=== PATIENT | male | born 1970 | race Caucasian/White ===

== ENCOUNTER 2019-06-11 05:03 | Inpatient (IN) ==
[2019-06-11] MEDS ORDERED: NS 1000 ML 1,000 ML ONE ×2 (05:20→06:21)
[2019-06-11] MEDS ORDERED: MORPHINE SULFATE INJ 4 MG IV ONE ×2 (05:26→06:26)
[2019-06-11] MEDS ORDERED: ZOFRAN INJ 4 MG VIAL IV ONE (05:26)
[2019-06-11] MEDS ORDERED: ZOFRAN INJ 4 MG VIAL ONE (05:39)
[2019-06-11] MEDS ORDERED: MORPHINE SULFATE INJ 4 MG ONE ×2 (05:39→06:28)
--- NOTE | 2019-06-11 05:41 | DR.ABDMALE ---
HPI Time seen Time Seen by Provider: 06/11/19 05:26 PCP Primary Care Physician: JESSENIA HPI comment HPI Comment: 48 y/o with episode pancreatitis last year started having abd pain three days ago which has progressively worsened and is now accompanied by n/v; radiates to the back; no fever, chills, or diarrhea; last drink 3-4 days ago; he is a binge drinker Complaint Chief Complaint:: PT AMBULATORY IN ED WITH C/O LOWER ABD PAIN WITH N/V. PT STATES HE WAS DIAGNOSED WITH PANCREATITIS A YEAR AGO AND FEELS THE SAME. PT DIAPHORETIC IN TRIAGE. COVID-19 Coronavirus risk:travel/contact w/high risk person: No Has patient experienced Coronavirus symptoms: No Mode of arrival Mode of Arrival: Ambulatory Timing Onset of Chief Complaint: 06/09/19 PMH PMH Past Medical History: Yes Past Medical History: Hypertension Past Medical History Comment: PANCREATITIS Past Surgical History: Yes Past Surgical History Comment: HERNIA Family History History of Family Medical Conditions: Yes Family Medical History: Hypertension Social History Does patient currently use any type of tobacco product: No Have you used tobacco products in the last 12 months: No Type of Tobacco Use: None Does any household member use tobacco: No Alcohol Use: Heavy Do you use any recreational Drugs:: No Lives With: Dad Lives Where: Home Travel Risk Coronavirus risk:travel/contact w/high risk person: No Has patient experienced Coronavirus symptoms: No Infectious screening In the last 2 months have you had wt loss of >10#?: NO Have you had fever, night sweats or hemotysis?: No Have you traveled outside the country in the last 6 months?: No Isolation: Standard ROS Review of Systems Constitutional: No Symptoms Reported Respiratoy: No Symptoms Reported Cardiovascular: No Symptoms Reported Gastrointestinal/Abdominal: See HPI Neurological: No Symptoms Reported Musculoskeletal: See HPI and Back Integumentary: No Symptoms Reported Hematologic/Lymphatic: No Symptoms Reported PE Vital Signs Vital Signs: Temp Pulse Resp BP BP Pulse Ox 06/11/19 09:30 195/121 06/11/19 09:09 20 06/11/19 09:00 175/103 06/11/19 08:39 20 06/11/19 08:30 182/115 06/11/19 08:00 188/119 06/11/19 07:38 177/110 06/11/19 07:01 20 06/11/19 07:00 153/102 06/11/19 06:31 20 06/11/19 06:30 181/104 06/11/19 06:23 182/103 06/11/19 06:00 20 06/11/19 05:30 22 06/11/19 05:04 96.7 F L 148 H 22 165/121 97 General Limitations: No Limitations General Appearance: Alert and In No Apparent Distress Head Head Exam: Normal Inspection, Atraumatic and Normocephalic Eyes Eye exam: Normal Appearance Neck Neck Exam: Normal Inspection, Full ROM and Trachea Midline Respiratory Respiratory Exam: Normal Lung Sounds Bilat Respiratory Exam: Bilateral: Clear to Auscultation Cardiovascular Cardiovascular Exam: Regular Rate and Normal Rhythm Abdominal Exam Abdominal Exam: Normal Inspection, Normal Bowel Sounds, Soft and Tenderness Abdominal Tenderness: Diffuse and Severe Back Back Exam: Normal Inspection Extremeties Extremities Exam: Normal Inspection and Full ROM Neurologic Neurological Exam: Alert, Oriented X3 and CN II-XII Intact Psychiatric Psychiatric Exam: Normal Affect and Normal Mood COURSE Treatment Treatment: [address] Myrick Reevaluation 1st: Improved (minimally; still 8/10 although resting comfortably) ROR Labs Reviewed Result Diagrams: 06/11/19 05:20 06/11/19 05:20 Laboratory: WBC 8.9 X10^3/uL (3.6-10.0) 06/11/19 05:20 RBC 5.72 X10^6/uL (4.7-6.0) 06/11/19 05:20 Hgb 19.7 g/dL (13.5-18.0) H* 06/11/19 05:20 Hct 55.6 % (42.0-54.0) H 06/11/19 05:20 MCV 97.1 fL (80.0-100.0) 06/11/19 05:20 MCH 34.4 pg (27.0-34.0) H 06/11/19 05:20 MCHC 35.4 g/dL (33.0-35.0) H 06/11/19 05:20 RDW 14.8 % (11.6-16.5) 06/11/19 05:20 Plt Count 117 X10^3/uL (150.0-450.0) L 06/11/19 05:20 Plt Count Comment Decreased (ADEQUATE) 06/11/19 05:20 MPV 9.6 fL (7.4-11.0) 06/11/19 05:20 Neut % (Auto) 89.9 % (42.0-75.0) H 06/11/19 05:20 Lymph % (Auto) 3.3 % (21.0-51.0) L 06/11/19 05:20 [place] % (Auto) 5.9 % (0.0-13.0) 06/11/19 05:20 Eos % (Auto) 0.1 % (0.9-2.9) L 06/11/19 05:20 Baso % (Auto) 0.8 % (0.2-1.0) 06/11/19 05:20 Neut # (Auto) 8.0 x10^3/uL (2.2-4.8) H 06/11/19 05:20 Lymph # (Auto) 0.3 X10^3/uL (1.3-2.9) L 06/11/19 05:20 [place] # (Auto) 0.5 x10^3/uL (0.3-0.8) 06/11/19 05:20 Eos # (Auto) 0.0 x10^3/uL (0.0-0.2) 06/11/19 05:20 Baso # (Auto) 0.1 X10^3/uL (0.0-0.1) 06/11/19 05:20 Absolute Nucleated RBC 0.2 /100WBC 06/11/19 05:20 Total Counted 100 06/11/19 05:20 Neutrophils % (Manual) 83 % (39-76) H 06/11/19 05:20 Band Neutrophils % 7 % (0-10) 06/11/19 05:20 Lymphocytes % (Manual) 6 % (13-43) L 06/11/19 05:20 Monocytes % (Manual) 4 % (4-9) 06/11/19 05:20 Plt Morphology Comment Normal (NORMAL) 06/11/19 05:20 RBC Morphology Normal (NORMAL) 06/11/19 05:20 Sodium 136 mmol/L (136-145) 06/11/19 05:20 Corrected Sodium 140 mmol/L (136-145) 06/11/19 05:20 Potassium 3.5 mmol/L (3.5-5.1) 06/11/19 05:20 Chloride 91 mmol/L (98-107) L 06/11/19 05:20 Carbon Dioxide 23.9 mmol/L (21-32) 06/11/19 05:20 BUN 7 mg/dL (7-18) 06/11/19 05:20 Creatinine 1.37 mg/dL (0.70-1.30) H 06/11/19 05:20 Est GFR (MDRD) Af Amer > 60 (>60) 06/11/19 05:20 Est GFR (MDRD) Non-Af 59 (>60) 06/11/19 05:20 Glucose 283 mg/dL (65-99) H 06/11/19 05:20 Calcium 10.0 mg/dL (8.5-10.1) 06/11/19 05:20 Corrected Calcium TNP 06/11/19 05:20 Total Bilirubin 2.50 mg/dL (0.2-1.0) H 06/11/19 05:20 AST 207 Units/L (15-37) H 06/11/19 05:20 ALT 217 Units/L (12-78) H 06/11/19 05:20 Alkaline Phosphatase 128 Units/L (46-116) H 06/11/19 05:20 Total Protein 8.9 g/dL (6.4-8.2) H 06/11/19 05:20 Albumin 4.8 g/dL (3.4-5.0) 06/11/19 05:20 Globulin 4.1 g/dL (2.5-4.5) 06/11/19 05:20 Albumin/Globulin Ratio 1.2 Ratio (1.1-2.1) 06/11/19 05:20 Amylase 611 Units/L (25-115) H 06/11/19 05:20 Lipase 21395 Units/L (73-393) H 06/11/19 05:20 Ethyl Alcohol mg/dL < 3 mg/dL (0-19.9) 06/11/19 05:20 Ethyl Alcohol mg/dL Cancelled 06/11/19 05:20 Opioid Opioid Risk Tool Age (Tucker box if 16-45): Yes History of Preadolescent Sexual Abuse: No Total: 1 Total Score Risk Category: Low Risk Copyright: Dougie BLEDSOE predicting aberrant behaviors Diagnosis Discharge Problem: Thrombocytopenia, Erythrocytosis, Cyst and pseudocyst of pancreas Acute alcoholic pancreatitis Qualifiers: Acute pancreatitis complication: no infection or necrosis Qualified Code(s): K85.20 - Alcohol induced acute pancreatitis without necrosis or infection Abdominal pain Qualifiers: Abdominal location: generalized Qualified Code(s): R10.84 - Generalized abdominal pain Instructions Forms: Excuse From Work Precautions for COVID19 Patient Portal Social Distancing
[2019-06-11 05:44] LABS: BASOPHILS # (AUTO) 0.1 X10^3/uL (0.0-0.1); LYMPHOCYTES # (AUTO) 0.3 X10^3/uL (1.3-2.9); LYMPHOCYTES % (AUTO) 3.3 % (21.0-51.0); RED BLOOD COUNT 5.72 X10^6/uL (4.7-6.0); RED CELL DISTRIBUTION WIDTH 14.8 % (11.6-16.5)
[2019-06-11] MEDS ORDERED: NS 1000 ML 1,000 ML IV ONE (05:44)
[2019-06-11 05:55] LABS: ALANINE AMINOTRANSFERASE 217 Units/L (12-78); ALBUMIN 4.8 g/dL (3.4-5.0); ALKALINE PHOSPHATASE 128 Units/L (46-116); AMYLASE 611 Units/L (25-115); ASPARTATE AMINO TRANSFERASE 207 Units/L (15-37); BLOOD UREA NITROGEN 7 mg/dL (7-18); CARBON DIOXIDE 23.9 mmol/L (21-32); CHLORIDE 91 mmol/L (98-107); COR NA(FOR HYPERGLY) 140 mmol/L (136-145); CREATININE 1.37 mg/dL (0.70-1.30); SODIUM 136 mmol/L (136-145); TOTAL PROTEIN 8.9 g/dL (6.4-8.2); eGFR NON BLACK RACES 59 (>60)
[2019-06-11 06:03] LABS: BASOPHILS % (AUTO) 0.8 % (0.2-1.0); EOSINOPHILS % (AUTO) 0.1 % (0.9-2.9); HEMATOCRIT 55.6 % (42.0-54.0); MEAN CORPUSCULAR HEMOGLOBIN 34.4 pg (27.0-34.0); MEAN CORPUSCULAR HGB CONC 35.4 g/dL (33.0-35.0); MEAN CORPUSCULAR VOLUME 97.1 fL (80.0-100.0); MEAN PLATELET VOLUME 9.6 fL (7.4-11.0); MONOCYTES # (AUTO) 0.5 x10^3/uL (0.3-0.8); MONOCYTES % (AUTO) 5.9 % (0.0-13.0); NEUTROPHILS % (AUTO) 89.9 % (42.0-75.0); PLATELET COUNT 117 X10^3/uL (150.0-450.0); WHITE BLOOD COUNT 8.9 X10^3/uL (3.6-10.0)
[2019-06-11 06:09] LABS: BAND NEUTROPHILS % 7 % (0-10); HEMOGLOBIN 19.7 g/dL (13.5-18.0); PLATELET MORPHOLOGY COMMENT NORMAL (NORMAL)
[2019-06-11 06:13] LABS: LIPASE 15224 Units/L (73-393)
[2019-06-11] MEDS ORDERED: NS 1000 ML 1,000 ML IV SCH ×2 (07:00)
[2019-06-11] MEDS ORDERED: NS 100 ML IV 0 ML IV ONE (07:27)
[2019-06-11] MEDS ORDERED: ROCEPHIN VIAL 1 GRAM ONE ×2 (07:28→22:41)
--- NOTE | 2019-06-11 08:07 | CT ---
HISTORYAbdominal pain, nausea, vomitingSTUDYABDOMEN/PELVIS WITH CONCOMPARISONNoneTECHNIQUEMultiple axial images of the abdomen and pelvis were obtained from the lung bases to the pubic symphysis after the administration of 100 mL Omnipaque 350 IV contrast and oral contrast.. Dose reduction techniques including Automated Exposure Control (AEC) and adjustment of mA and kV were utilized.FINDINGSThe visualized portions of the lung bases are unremarkable . The spleen, kidneys, and adrenal glands are unremarkable in their CT appearance. A small simple cyst is seen posteriorly in the upper pole left kidney. Kidneys are otherwise normal. The liver is diffusely decreased in attenuation consistent with fatty infiltration. No focal hepatic lesions or dilated ducts are observed. The pancreas is diffusely enlarged with peripancreatic blurring there is a small amount of simple free fluid in the abdomen and there is a large pancreatic cyst probably a pancreatic pseudocyst at the tail the pancreas measuring 8.5 x 7.3 cm with central attenuation of 16 Hounsfield units. There is mild wall thickening in the 2nd portion the duodenal sweep adjacent to the head pancreas consistent with secondary edema from the pancreatitis. No hypodensities are seen within the pancreas to suggest pancreatic necrosis or abscess. The gallbladder is unremarkable in its CT appearance . No significant mesenteric lymphadenopathy can be observed. There is stranding in the mesentery surrounding the pancreas secondary to the pancreatitis. The aorta and IVC are normal there is no evidence aneurysm or retroperitoneal adenopathy. No free air is seen within the abdomen. No bowel wall thickening or bowel dilatation is present. The colon is unremarkable. Specifically, there is mild diverticulosis noted within the sigmoid colon but no signs of diverticulitis.. The urinary bladder is grossly unremarkable. The bony structures are grossly intact.IMPRESSIONPancreatitis acute moderate to severe in degree with the large pancreatic pseudocyst developing at the tail the pancreas. There is no evidence of pancreatic necrosis or infection at this time. There is a small amount of free fluid in the pericolic gutter on the left.Markedly fatty infiltration of the liver but no focal dilated ducts or focal hepatic lesions. No signs of gallstones.Simple cyst upper pole left kidney posterior laterally.Electronically signed by: BESSY FLORES (Jun 11, 2019 08:05:33)
[2019-06-11] MEDS ORDERED: DILAUDID INJ ONE (08:36)
[2019-06-11] MEDS: DILAUDID INJ IVP PRN ×3 (08:39→19:34)
[2019-06-11] MEDS ORDERED: PROTONIX INJ 40 MG VIAL ONE (09:43)
[2019-06-11] MEDS ORDERED: CATAPRES TAB 0.1 MG ONE (09:43)
[2019-06-11] MEDS: PROTONIX INJ 40 MG VIAL IVP SCH (09:48)
[2019-06-11] MEDS: CATAPRES TAB 0.1 MG PO SCH ×2 (09:48→21:25)
[2019-06-11] MEDS ORDERED: LIBRIUM PO PRN (10:19)
[2019-06-11] MEDS ORDERED: ATIVAN INJ 2 MG VIAL IVP ONE (10:21)
[2019-06-11] MEDS ORDERED: ATIVAN INJ 2 MG VIAL ONE (10:22)
[2019-06-11] MEDS ORDERED: CATAPRES-TTS-2 TD SCH (11:00)
--- NOTE | 2019-06-11 11:12 | US ---
[id number] male with pancreatitis.STUDYAbdominal ultrasoundCOMPARISONCT of the abdomen/pelvis performed on the same dateFINDINGSFatty changes are noted in the liver. However no focal intrahepatic abnormality is seen. Portal vein is patent with normal hepatopetal flow.Gallbladder is normal appearing with no cholelithiasis, gallbladder wall thickening, or localized tenderness.Right kidney measures 9.7 centimeters and the left 10.2 centimeters in length. A 0.9 centimeter cyst is identified in the left kidney. Otherwise no evidence of hydronephrosis, echogenic calculi, or solid renal mass is seen on either side.Spleen is unremarkable.Pancreas is not well seen because of overlying bowel gas. However a 7 x 5 x 9 cm cystic structure in the region of the tail the pancreas corresponds to the pancreatic pseudocyst noted on patient's CT.Abdominal aorta is not well seen because of overlying bowel gasIMPRESSION1. Pancreas not well seen because of overlying bowel gas. However large cystic structure in the region of the tail the pancreas corresponds to the pancreatic pseudocyst identified on patient's CT.2. Fatty changes are seen in the liver.3. Left renal cyst.No cholelithiasis.Electronically signed by: KELL FELIX (Jun 11, 2019 11:10:44)
[2019-06-11] MEDS: D5 1/2 NS 1000 ML 1,000 ML IV SCH ×3 (13:24→21:35)
[2019-06-11] MEDS: ZOFRAN INJ 4 MG VIAL IVP PRN (13:25)
[2019-06-11] MEDS: LIBRIUM PO SCH ×3 (13:27→23:04)
[2019-06-11] MEDS: ANCEF VIAL 1 GRAM IVP SCH ×2 (13:28→21:25)
[2019-06-11 13:31] VITALS: BMI 37.3
[2019-06-11 14:10] LABS: BILIRUBIN,URINE 1+ (NEGATIVE); BLOOD/HEMOGLOBIN,URINE 2+ (NEGATIVE); GLUCOSE, URINE 2+ (NEGATIVE); KETONES,URINE 2+ (NEGATIVE); LEUKOCYTE ESTERASE ,URINE 1+ (NEGATIVE); NITRITES,URINE POSITIVE (NEGATIVE); PH,URINE 6.5 (5.0 - 8.0); PROTEIN,URINE 3+ (NEGATIVE); UROBILINOGEN,URINE 2+ (NORMAL)
[2019-06-11 14:21] LABS: APPEARANCE,URINE CLEAR (CLEAR); BACTERIA,URINE TRACE /HPF (NEGATIVE); COLOR,URINE ORANGE (YELLOW); MUCUS,URINE FEW /HPF (NEGATIVE); SQUAMOUS EPITHELIAL CELL,UR RARE /HPF (NEGATIVE)
[2019-06-11] MEDS ORDERED: APRESOLINE INJ 20 MG VIAL IVP PRN (14:50)
[2019-06-11 15:18] LABS: CHOL/HDL RATIO 3.7 (0.0-5.0)
[2019-06-11] MEDS: LEVAQUIN PREMIX IV 500 MG 500 MG/100 ML BAG IV SCH (15:18)
[2019-06-11] MEDS ORDERED: APRESOLINE INJ 20 MG VIAL ONE (15:51)
[2019-06-11] MEDS: MVI IV SCH ×5 (16:02)
[2019-06-11] MEDS: [UNRECOGNIZED DRUG - OTHER] IV SCH ×5 (16:02)
[2019-06-11] MEDS: MAGNESIUM SULFATE IV SCH ×5 (16:02)
[2019-06-11] MEDS: NS IV SCH ×5 (16:02)
--- NOTE | 2019-06-11 16:18 | DR.H&P ---
H&P History & Physical for Day of: H&P Date: 06/11/19 Chief Complaint Chief Complaint: abdominal pain, nausea Allergies Allergies Allergy/AdvReac Type Severity Reaction Status Date / Time No Known Drug Allergies Allergy Verified 06/11/19 05:10 History of Present Illness History of Present Illness: Mr. Meadows is a 48y/o male with a PMH of HTN and chronic ETOH use presented with diffuse abdominal pain with radiation to the back, associated with nausea and vomiting. Patient states his symptoms started yesterday morning after he had been binge drinking for the past 3-4 days. He states he knew he was having another pancreatitis episode so decided to come to the ED. His last episode was a year ago in [place]. He has been staying in [place] now due to pandemic so states he has been at home with nothing to do. He denies hx of seizures 2/2 to ETOH or intubation. He was in rehab over a year ago for alcohol abuse but reports started drinking again. ED work-up: CTAP: pancreatitis with pseudocyst, Dr Nguyen managing. Abd U/S: no gall bladder inflammation or cholelithiasis. Lipase: 15 224, elevated LFTs and amylase. Mild elevation in Cr, CEA pending. Consult for med management due to accelerated HTN and tachycardia. Plan: continue clonidine BID, add hydralazine prn for SBP>160, BP currently improved from admission, HR 110-120 likely due to withdrawal. Continue Librium and monitor closely. Continue IVF and banana bag, NPO and pain control. Continue telemetry. Repeat labs in the AM. Past Medical History Past Medical History: Hypertension Additional Medical History: ETOH use. Family History Family Medical History: Hypertension Social History Does patient currently use any type of tobacco product: No Have you used tobacco products in the last 12 months: No Type of Tobacco Use: None Does any household member use tobacco: No Alcohol Use: Occasionally and Heavy Drug Use: None Medications Home Medications: No Known Drug Allergies Allergy (Verified 06/11/19 05:10) CONTINUE taking the following medications clonidine HCl 0.1 mg PO BID 06/11/19 [History] Labs Result Diagrams: 06/11/19 05:20 06/11/19 05:20 Labs: Laboratory WBC 8.9 X10^3/uL (3.6-10.0) 06/11/19 05:20 RBC 5.72 X10^6/uL (4.7-6.0) 06/11/19 05:20 Hgb 19.7 g/dL (13.5-18.0) H* 06/11/19 05:20 Hct 55.6 % (42.0-54.0) H 06/11/19 05:20 MCV 97.1 fL (80.0-100.0) 06/11/19 05:20 MCH 34.4 pg (27.0-34.0) H 06/11/19 05:20 MCHC 35.4 g/dL (33.0-35.0) H 06/11/19 05:20 RDW 14.8 % (11.6-16.5) 06/11/19 05:20 Plt Count 117 X10^3/uL (150.0-450.0) L 06/11/19 05:20 Plt Count Comment Decreased (ADEQUATE) 06/11/19 05:20 MPV 9.6 fL (7.4-11.0) 06/11/19 05:20 Neut % (Auto) 89.9 % (42.0-75.0) H 06/11/19 05:20 Lymph % (Auto) 3.3 % (21.0-51.0) L 06/11/19 05:20 [place] % (Auto) 5.9 % (0.0-13.0) 06/11/19 05:20 Eos % (Auto) 0.1 % (0.9-2.9) L 06/11/19 05:20 Baso % (Auto) 0.8 % (0.2-1.0) 06/11/19 05:20 Neut # (Auto) 8.0 x10^3/uL (2.2-4.8) H 06/11/19 05:20 Lymph # (Auto) 0.3 X10^3/uL (1.3-2.9) L 06/11/19 05:20 [place] # (Auto) 0.5 x10^3/uL (0.3-0.8) 06/11/19 05:20 Eos # (Auto) 0.0 x10^3/uL (0.0-0.2) 06/11/19 05:20 Baso # (Auto) 0.1 X10^3/uL (0.0-0.1) 06/11/19 05:20 Absolute Nucleated RBC 0.2 /100WBC 06/11/19 05:20 Total Counted 100 06/11/19 05:20 Neutrophils % (Manual) 83 % (39-76) H 06/11/19 05:20 Band Neutrophils % 7 % (0-10) 06/11/19 05:20 Lymphocytes % (Manual) 6 % (13-43) L 06/11/19 05:20 Monocytes % (Manual) 4 % (4-9) 06/11/19 05:20 Plt Morphology Comment Normal (NORMAL) 06/11/19 05:20 RBC Morphology Normal (NORMAL) 06/11/19 05:20 Sodium 136 mmol/L (136-145) 06/11/19 05:20 Corrected Sodium 140 mmol/L (136-145) 06/11/19 05:20 Potassium 3.5 mmol/L (3.5-5.1) 06/11/19 05:20 Chloride 91 mmol/L (98-107) L 06/11/19 05:20 Carbon Dioxide 23.9 mmol/L (21-32) 06/11/19 05:20 BUN 7 mg/dL (7-18) 06/11/19 05:20 Creatinine 1.37 mg/dL (0.70-1.30) H 06/11/19 05:20 Est GFR (MDRD) Af Amer > 60 (>60) 06/11/19 05:20 Est GFR (MDRD) Non-Af 59 (>60) 06/11/19 05:20 Glucose 283 mg/dL (65-99) H 06/11/19 05:20 Calcium 10.0 mg/dL (8.5-10.1) 06/11/19 05:20 Corrected Calcium TNP 06/11/19 05:20 Total Bilirubin 2.50 mg/dL (0.2-1.0) H 06/11/19 05:20 AST 207 Units/L (15-37) H 06/11/19 05:20 ALT 217 Units/L (12-78) H 06/11/19 05:20 Alkaline Phosphatase 128 Units/L (46-116) H 06/11/19 05:20 Total Protein 8.9 g/dL (6.4-8.2) H 06/11/19 05:20 Albumin 4.8 g/dL (3.4-5.0) 06/11/19 05:20 Globulin 4.1 g/dL (2.5-4.5) 06/11/19 05:20 Albumin/Globulin Ratio 1.2 Ratio (1.1-2.1) 06/11/19 05:20 Triglycerides 115 mg/dL (0-150) 06/11/19 14:59 Cholesterol 181 mg/dL (0-200) 06/11/19 14:59 LDL Cholesterol, Calc 109 mg/dL (0-100) H 06/11/19 14:59 HDL Cholesterol 49 mg/dL (40-60) 06/11/19 14:59 Cholesterol/HDL Ratio 3.7 (0.0-5.0) 06/11/19 14:59 Amylase 611 Units/L (25-115) H 06/11/19 05:20 Lipase 40565 Units/L (73-393) H 06/11/19 05:20 Specimen Type Clean catch urine 06/11/19 13:58 Urine Color [place] (YELLOW) 06/11/19 13:58 Urine Appearance Clear (CLEAR) 06/11/19 13:58 Urine pH 6.5 (5.0 - 8.0) 06/11/19 13:58 Ur Specific [place] 1.010 (1.000-1.030) 06/11/19 13:58 Urine Protein 3+ (NEGATIVE) 06/11/19 13:58 Urine Glucose (UA) 2+ (NEGATIVE) 06/11/19 13:58 Urine Ketones 2+ (NEGATIVE) 06/11/19 13:58 Urine Occult Blood 2+ (NEGATIVE) 06/11/19 13:58 Urine Nitrite Positive (NEGATIVE) 06/11/19 13:58 Urine Bilirubin 1+ (NEGATIVE) 06/11/19 13:58 Urine Urobilinogen 2+ (NORMAL) 06/11/19 13:58 Ur Leukocyte Esterase 1+ (NEGATIVE) 06/11/19 13:58 Urine RBC 3-5 /HPF (0-3) A 06/11/19 13:58 Urine WBC 0-2 /HPF (0-5) 06/11/19 13:58 Ur Squamous Epith Cells Rare /HPF (NEGATIVE) 06/11/19 13:58 Urine Bacteria Trace /HPF (NEGATIVE) 06/11/19 13:58 Urine Mucus Few /HPF (NEGATIVE) 06/11/19 13:58 Ur Culture Indicated? Yes/culture set up 06/11/19 13:58 Ethyl Alcohol mg/dL < 3 mg/dL (0-19.9) 06/11/19 05:20 Ethyl Alcohol mg/dL Cancelled 06/11/19 05:20 Review of Systems Constitutional: Sweats Eyes: No Symptoms Reported ENT: No Symptoms Reported Respiratory: No Symptoms Reported Cardiovascular: No Symptoms Reported Gastrointestinal: Nausea, Vomiting and Abdominal Pain Genitourinary: No Symptoms Reported Musculoskeletal: No Symptoms Reported Skin: No Symptoms Reported Neurological: No Symptoms Reported Physical Exam Vital Signs: Temperature 98.2 F Pulse Rate [Left Radial] 116 Pulse Rate 148 Respiratory Rate 20 Blood Pressure [Left Arm] 159/106 Blood Pressure 165/121 O2 Sat by Pulse Oximetry 93 Oriented: Normal Eyes: Normal Ear: Normal Nose: Normal Respiratory: Clear Throughout Cardiovascular: Normal and Tachycardia Auscultation: Bowel Sounds: Decreased Tenderness: Diffuse and Moderate Skin: Diaphoresis Musculoskeletal: Right and Hand (tremor noted ) Psychiatric: Anxiety Mood Description: Calm Affect: Anxious Speech Pattern: Clear and Appropriate Assessment/Plan (1) Acute alcoholic pancreatitis: Qualifiers: Acute pancreatitis complication: no infection or necrosis Qualified Code(s): K85.20 - Alcohol induced acute pancreatitis without necrosis or infection Status: Acute (2) Thrombocytopenia: Status: Acute (3) Cyst and pseudocyst of pancreas: Status: Acute (4) Accelerated hypertension: Status: Acute (5) ETOH abuse: Status: Acute (6) Sinus tachycardia: Status: Acute (7) UTI (urinary tract infection): Qualifiers: Hematuria presence: without hematuria Urinary tract infection type: acute cystitis Qualified Code(s): N30.00 - Acute cystitis without hematuria Status: Acute Review H&P Reviewed: Yes Patient was examined?: Yes
[2019-06-11] MEDS ORDERED: LOPRESSOR TAB 50 MG PO SCH (21:00)
[2019-06-11] MEDS ORDERED: CATAPRES TAB 0.1 MG PO SCH (21:00)
[2019-06-11] MEDS ORDERED: NS 100 ML IV 100 ML IV ONE (22:41)
[2019-06-12] MEDS ORDERED: NS 100 ML IV 100 ML IV ONE (04:19)
[2019-06-12] MEDS: ANCEF VIAL 1 GRAM IVP SCH ×3 (05:08→21:00)
[2019-06-12] MEDS: LIBRIUM PO SCH ×4 (05:08→22:00)
[2019-06-12 05:45] LABS: BASOPHILS % (AUTO) 0.3 % (0.2-1.0); HEMATOCRIT 51.9 % (42.0-54.0); HEMOGLOBIN 18.2 g/dL (13.5-18.0); LYMPHOCYTES # (AUTO) 0.2 X10^3/uL (1.3-2.9); LYMPHOCYTES % (AUTO) 2.2 % (21.0-51.0); MEAN CORPUSCULAR HEMOGLOBIN 34.8 pg (27.0-34.0); MEAN CORPUSCULAR HGB CONC 35.2 g/dL (33.0-35.0); MEAN CORPUSCULAR VOLUME 99.1 fL (80.0-100.0); MONOCYTES # (AUTO) 0.5 x10^3/uL (0.3-0.8); MONOCYTES % (AUTO) 4.8 % (0.0-13.0); NEUTROPHILS # (AUTO) 10.2 x10^3/uL (2.2-4.8); NEUTROPHILS % (AUTO) 92.7 % (42.0-75.0); PLATELET COUNT 83 X10^3/uL (150.0-450.0); RED BLOOD COUNT 5.24 X10^6/uL (4.7-6.0)
[2019-06-12 06:05] LABS: ALBUMIN 3.1 g/dL (3.4-5.0); CALCIUM 7.4 mg/dL (8.5-10.1); CARBON DIOXIDE 25.6 mmol/L (21-32); COR CA(FOR HYPOALB) 8.1 mg/dL (8.5-10.1); CREATININE 1.83 mg/dL (0.70-1.30); TOTAL PROTEIN 6.4 g/dL (6.4-8.2)
[2019-06-12 06:14] LABS: BAND NEUTROPHILS % 27 % (0-10); GIANT PLATELET PRESENT; METAMYELOCYTES % 3; PLATELET MORPHOLOGY COMMENT NORMAL (NORMAL)
[2019-06-12] MEDS: LEVAQUIN PREMIX IV 500 MG 500 MG/100 ML BAG IV SCH (08:15)
[2019-06-12] MEDS: PROTONIX INJ 40 MG VIAL IVP SCH (08:15)
[2019-06-12] MEDS ORDERED: KLOR-CON PO PRN (08:20)
[2019-06-12] MEDS: DILAUDID INJ IVP PRN ×2 (08:20→20:56)
[2019-06-12] MEDS ORDERED: POTASSIUM CHL 60 MEQ/NS 0.45% 500 ML IV PRN (08:20)
[2019-06-12] MEDS ORDERED: K-RIDER 10 MEQ/NS 100 ML 10 MEQ/100 ML BAG IV PRN (08:20)
[2019-06-12] MEDS ORDERED: MICRO K EXTEN CAP 10 MEQ PO PRN (08:20)
[2019-06-12] MEDS ORDERED: POTASSIUM CHL 40 MEQ/NS 0.45% 500 ML IV PRN (08:20)
[2019-06-12] MEDS: ZOFRAN INJ 4 MG VIAL IVP PRN (08:30)
--- NOTE | 2019-06-12 08:32 | PCM.PROG ---
Progress Note Progress Note for Day of Date of Exam: 06/12/19 Subjective Subjective: Patient seen and examined at bedside. Overnight, HR elevated to 140- 150, inventory control clerk physician as called and patient was started on metoprolol tartrate 50 mg BID. This morning, HR in the low 100-110, BP improved to SBP in 120's. Patient reports feeling slightly better, abdominal pain is not as diffuse as it was on admission. Denies N/V/D or fever/chills. Labs reviewed: K-3.2, Mg 1.0, Cr: 1.83, LFTs trending down and lipase/amylase. Plan: replace K and Mag as per protocol, continue NPO and pain control, continue banana bag. Will switch to NS at 150cc/hr. Decrease metoprolol tartrate to 12.5 mg BID. Patient has the clonidine patch on, hold PO clonidine. Follow surgery recommendations. Continue abx, urine culture pending. Past Medical Family Social History Past Med/Fam/Surg Hx: No changes since H&P Allergies: Allergies No Known Drug Allergies Allergy (Verified 06/11/19 05:10) Review of Systems ROS: No change since H&P Vital Signs and I&O's Vital Signs: Temperature 97.6 F Pulse Rate [Left Radial] 113 Pulse Rate 148 Respiratory Rate 20 Blood Pressure [Left Arm] 129/79 Blood Pressure 165/121 O2 Sat by Pulse Oximetry 94 Intake and Output: Intake & Output 06/09/19 06/10/19 06/11/19 06/12/19 23:59 23:59 23:59 23:59 Intake Total 1558 / 1558 1320 / 1320 Output Total 575 / 575 200 / 200 Balance 983 / 983 1120 / 1120 Physical Exam Oriented: Normal Eyes: Normal Ear: Normal Nose: Normal Cardiovascular: Normal and Tachycardia Auscultation: Bowel Sounds: Decreased Tenderness: Epigastric, Periumbilical and Moderate Musculoskeletal: Right and Hand (tremor improved ) Psychiatric: Normal Mood Description: Calm Affect: Normal Speech Pattern: Clear and Appropriate Laboratory and Diagnostics Result Diagrams: 06/12/19 05:15 06/12/19 05:15 Labs: Laboratory WBC 11.0 X10^3/uL (3.6-10.0) H 06/12/19 05:15 RBC 5.24 X10^6/uL (4.7-6.0) 06/12/19 05:15 Hgb 18.2 g/dL (13.5-18.0) H 06/12/19 05:15 Hct 51.9 % (42.0-54.0) 06/12/19 05:15 MCV 99.1 fL (80.0-100.0) 06/12/19 05:15 MCH 34.8 pg (27.0-34.0) H 06/12/19 05:15 MCHC 35.2 g/dL (33.0-35.0) H 06/12/19 05:15 RDW 15.0 % (11.6-16.5) 06/12/19 05:15 Plt Count 83 X10^3/uL (150.0-450.0) L 06/12/19 05:15 Plt Count Comment Decreased (ADEQUATE) 06/12/19 05:15 MPV 11.0 fL (7.4-11.0) 06/12/19 05:15 Neut % (Auto) 92.7 % (42.0-75.0) H 06/12/19 05:15 Lymph % (Auto) 2.2 % (21.0-51.0) L 06/12/19 05:15 [place] % (Auto) 4.8 % (0.0-13.0) 06/12/19 05:15 Eos % (Auto) 0.0 % (0.9-2.9) L 06/12/19 05:15 Baso % (Auto) 0.3 % (0.2-1.0) 06/12/19 05:15 Neut # (Auto) 10.2 x10^3/uL (2.2-4.8) H 06/12/19 05:15 Lymph # (Auto) 0.2 X10^3/uL (1.3-2.9) L 06/12/19 05:15 [place] # (Auto) 0.5 x10^3/uL (0.3-0.8) 06/12/19 05:15 Eos # (Auto) 0.0 x10^3/uL (0.0-0.2) 06/12/19 05:15 Baso # (Auto) 0.0 X10^3/uL (0.0-0.1) 06/12/19 05:15 Absolute Nucleated RBC 0.1 /100WBC 06/12/19 05:15 Total Counted 100 06/12/19 05:15 Neutrophils % (Manual) 62 % (39-76) 06/12/19 05:15 Band Neutrophils % 27 % (0-10) H 06/12/19 05:15 Lymphocytes % (Manual) 6 % (13-43) L 06/12/19 05:15 Monocytes % (Manual) 2 % (4-9) L 06/12/19 05:15 Metamyelocytes % 3 06/12/19 05:15 Giant Platelets Present 06/12/19 05:15 Plt Morphology Comment Normal (NORMAL) 06/12/19 05:15 RBC Morphology Normal (NORMAL) 06/12/19 05:15 Sodium 135 mmol/L (136-145) L 06/12/19 05:15 Corrected Sodium 136 mmol/L (136-145) 06/12/19 05:15 Potassium 3.2 mmol/L (3.5-5.1) L 06/12/19 05:15 Chloride 96 mmol/L (98-107) L 06/12/19 05:15 Carbon Dioxide 25.6 mmol/L (21-32) 06/12/19 05:15 BUN 14 mg/dL (7-18) 06/12/19 05:15 Creatinine 1.83 mg/dL (0.70-1.30) H 06/12/19 05:15 Est GFR (MDRD) Af Amer 51 (>60) L 06/12/19 05:15 Est GFR (MDRD) Non-Af 42 (>60) L 06/12/19 05:15 Glucose 147 mg/dL (65-99) H 06/12/19 05:15 POC Glucose (mg/dL) 164 mg/dL (65-99) H 06/12/19 05:29 Calcium 7.4 mg/dL (8.5-10.1) L 06/12/19 05:15 Corrected Calcium 8.1 mg/dL (8.5-10.1) L 06/12/19 05:15 Magnesium 1.0 mg/dL (1.7-2.9) L 06/12/19 05:15 Total Bilirubin 4.80 mg/dL (0.2-1.0) H 06/12/19 05:15 AST 133 Units/L (15-37) H 06/12/19 05:15 ALT 107 Units/L (12-78) H 06/12/19 05:15 Alkaline Phosphatase 64 Units/L (46-116) 06/12/19 05:15 Total Protein 6.4 g/dL (6.4-8.2) 06/12/19 05:15 Albumin 3.1 g/dL (3.4-5.0) L 06/12/19 05:15 Globulin 3.3 g/dL (2.5-4.5) 06/12/19 05:15 Albumin/Globulin Ratio 0.9 Ratio (1.1-2.1) L 06/12/19 05:15 Triglycerides 115 mg/dL (0-150) 06/11/19 14:59 Cholesterol 181 mg/dL (0-200) 06/11/19 14:59 LDL Cholesterol, Calc 109 mg/dL (0-100) H 06/11/19 14:59 HDL Cholesterol 49 mg/dL (40-60) 06/11/19 14:59 Cholesterol/HDL Ratio 3.7 (0.0-5.0) 06/11/19 14:59 Amylase 372 Units/L (25-115) H 06/12/19 05:15 Lipase 4084 Units/L (73-393) H 06/12/19 05:15 Specimen Type Clean catch urine 06/11/19 13:58 Urine Color [place] (YELLOW) 06/11/19 13:58 Urine Appearance Clear (CLEAR) 06/11/19 13:58 Urine pH 6.5 (5.0 - 8.0) 06/11/19 13:58 Ur Specific [place] 1.010 (1.000-1.030) 06/11/19 13:58 Urine Protein 3+ (NEGATIVE) 06/11/19 13:58 Urine Glucose (UA) 2+ (NEGATIVE) 06/11/19 13:58 Urine Ketones 2+ (NEGATIVE) 06/11/19 13:58 Urine Occult Blood 2+ (NEGATIVE) 06/11/19 13:58 Urine Nitrite Positive (NEGATIVE) 06/11/19 13:58 Urine Bilirubin 1+ (NEGATIVE) 06/11/19 13:58 Urine Urobilinogen 2+ (NORMAL) 06/11/19 13:58 Ur Leukocyte Esterase 1+ (NEGATIVE) 06/11/19 13:58 Urine RBC 3-5 /HPF (0-3) A 06/11/19 13:58 Urine WBC 0-2 /HPF (0-5) 06/11/19 13:58 Ur Squamous Epith Cells Rare /HPF (NEGATIVE) 06/11/19 13:58 Urine Bacteria Trace /HPF (NEGATIVE) 06/11/19 13:58 Urine Mucus Few /HPF (NEGATIVE) 06/11/19 13:58 Ur Culture Indicated? Yes/culture set up 06/11/19 13:58 Ethyl Alcohol mg/dL < 3 mg/dL (0-19.9) 06/11/19 05:20 Ethyl Alcohol mg/dL Cancelled 06/11/19 05:20 Plan (1) Acute alcoholic pancreatitis: Status: Acute Qualifiers: Acute pancreatitis complication: no infection or necrosis Qualified Code(s): K85.20 - Alcohol induced acute pancreatitis without necrosis or infection (2) Thrombocytopenia: Status: Acute (3) Cyst and pseudocyst of pancreas: Status: Acute (4) Accelerated hypertension: Status: Acute (5) ETOH abuse: Status: Acute (6) Sinus tachycardia: Status: Acute (7) UTI (urinary tract infection): Status: Acute Qualifiers: Hematuria presence: without hematuria Urinary tract infection type: acute cystitis Qualified Code(s): N30.00 - Acute cystitis without hematuria
[2019-06-12] MEDS: LOPRESSOR TAB 25 MG PO SCH ×2 (09:08→20:53)
[2019-06-12] MEDS: MAGNESIUM SULFATE 1 GRAM/100 mL PREMIX 1 GM/100 ML BAG IV PRN ×6 (09:50→17:00)
[2019-06-12] MEDS: NS 1000 ML 1,000 ML IV SCH (10:03)
[2019-06-12] MEDS: K-DUR TAB 20 MEQ PO PRN (10:04)
--- NOTE | 2019-06-12 10:07 | DR.PROGNOT ---
Hospital Progress Notes - Progress Note for Day of: Progress Note Date: 06/12/19 - Chief Complaint Chief Complaint: still c/o upper abdominal pain but less than yesterday . no nausea or vomiting . no BM yet. had episodes of tachycardia and HTN last night . LFT , Amylase Lipase are down. platelets 83. O2 94. GB US shwed no stones . - Past Medical Family Social History Past Med/Fam/Surg Hx: No changes since H&P Allergies: Allergies No Known Drug Allergies Allergy (Verified 06/11/19 05:10) - Review Of Systems ROS: No change since H&P - Vital Signs Vital Signs: Temperature 97.6 F Pulse Rate [Left Radial] 113 Pulse Rate 148 Respiratory Rate 22 Blood Pressure [Left Arm] 129/79 Blood Pressure 165/121 O2 Sat by Pulse Oximetry 94 - Physical Exam Oriented: Normal Eyes: Normal Ear: Normal Nose: Normal Cardiovascular: Tachycardia, Normal GI:Auscultation: Decreased GI: Tenderness: Epigastric, Moderate, Periumbilical Skin: Diaphoresis Musculoskeletal: Right, Hand (tremor improved) Psychiatric: Normal Mood Description: Calm Affect: Normal Speech Pattern: Clear, Appropriate - Laboratory and Diagnostics Result Diagrams: 06/12/19 05:15 06/12/19 05:15 Labs: 06/11/19 13:58 Urine,Clean Catch Urine Culture - Preliminary Laboratory WBC 11.0 X10^3/uL (3.6-10.0) H 06/12/19 05:15 RBC 5.24 X10^6/uL (4.7-6.0) 06/12/19 05:15 Hgb 18.2 g/dL (13.5-18.0) H 06/12/19 05:15 Hct 51.9 % (42.0-54.0) 06/12/19 05:15 MCV 99.1 fL (80.0-100.0) 06/12/19 05:15 MCH 34.8 pg (27.0-34.0) H 06/12/19 05:15 MCHC 35.2 g/dL (33.0-35.0) H 06/12/19 05:15 RDW 15.0 % (11.6-16.5) 06/12/19 05:15 Plt Count 83 X10^3/uL (150.0-450.0) L 06/12/19 05:15 Plt Count Comment Decreased (ADEQUATE) 06/12/19 05:15 MPV 11.0 fL (7.4-11.0) 06/12/19 05:15 Neut % (Auto) 92.7 % (42.0-75.0) H 06/12/19 05:15 Lymph % (Auto) 2.2 % (21.0-51.0) L 06/12/19 05:15 [place] % (Auto) 4.8 % (0.0-13.0) 06/12/19 05:15 Eos % (Auto) 0.0 % (0.9-2.9) L 06/12/19 05:15 Baso % (Auto) 0.3 % (0.2-1.0) 06/12/19 05:15 Neut # (Auto) 10.2 x10^3/uL (2.2-4.8) H 06/12/19 05:15 Lymph # (Auto) 0.2 X10^3/uL (1.3-2.9) L 06/12/19 05:15 [place] # (Auto) 0.5 x10^3/uL (0.3-0.8) 06/12/19 05:15 Eos # (Auto) 0.0 x10^3/uL (0.0-0.2) 06/12/19 05:15 Baso # (Auto) 0.0 X10^3/uL (0.0-0.1) 06/12/19 05:15 Absolute Nucleated RBC 0.1 /100WBC 06/12/19 05:15 Total Counted 100 06/12/19 05:15 Neutrophils % (Manual) 62 % (39-76) 06/12/19 05:15 Band Neutrophils % 27 % (0-10) H 06/12/19 05:15 Lymphocytes % (Manual) 6 % (13-43) L 06/12/19 05:15 Monocytes % (Manual) 2 % (4-9) L 06/12/19 05:15 Metamyelocytes % 3 06/12/19 05:15 Giant Platelets Present 06/12/19 05:15 Plt Morphology Comment Normal (NORMAL) 06/12/19 05:15 RBC Morphology Normal (NORMAL) 06/12/19 05:15 Sodium 135 mmol/L (136-145) L 06/12/19 05:15 Corrected Sodium 136 mmol/L (136-145) 06/12/19 05:15 Potassium 3.2 mmol/L (3.5-5.1) L 06/12/19 05:15 Chloride 96 mmol/L (98-107) L 06/12/19 05:15 Carbon Dioxide 25.6 mmol/L (21-32) 06/12/19 05:15 BUN 14 mg/dL (7-18) 06/12/19 05:15 Creatinine 1.83 mg/dL (0.70-1.30) H 06/12/19 05:15 Est GFR (MDRD) Af Amer 51 (>60) L 06/12/19 05:15 Est GFR (MDRD) Non-Af 42 (>60) L 06/12/19 05:15 Glucose 147 mg/dL (65-99) H 06/12/19 05:15 POC Glucose (mg/dL) 164 mg/dL (65-99) H 06/12/19 05:29 Calcium 7.4 mg/dL (8.5-10.1) L 06/12/19 05:15 Corrected Calcium 8.1 mg/dL (8.5-10.1) L 06/12/19 05:15 Magnesium 1.0 mg/dL (1.7-2.9) L 06/12/19 05:15 Total Bilirubin 4.80 mg/dL (0.2-1.0) H 06/12/19 05:15 AST 133 Units/L (15-37) H 06/12/19 05:15 ALT 107 Units/L (12-78) H 06/12/19 05:15 Alkaline Phosphatase 64 Units/L (46-116) 06/12/19 05:15 Total Protein 6.4 g/dL (6.4-8.2) 06/12/19 05:15 Albumin 3.1 g/dL (3.4-5.0) L 06/12/19 05:15 Globulin 3.3 g/dL (2.5-4.5) 06/12/19 05:15 Albumin/Globulin Ratio 0.9 Ratio (1.1-2.1) L 06/12/19 05:15 Triglycerides 115 mg/dL (0-150) 06/11/19 14:59 Cholesterol 181 mg/dL (0-200) 06/11/19 14:59 LDL Cholesterol, Calc 109 mg/dL (0-100) H 06/11/19 14:59 HDL Cholesterol 49 mg/dL (40-60) 06/11/19 14:59 Cholesterol/HDL Ratio 3.7 (0.0-5.0) 06/11/19 14:59 Amylase 372 Units/L (25-115) H 06/12/19 05:15 Lipase 4084 Units/L (73-393) H 06/12/19 05:15 Specimen Type Clean catch urine 06/11/19 13:58 Urine Color [place] (YELLOW) 06/11/19 13:58 Urine Appearance Clear (CLEAR) 06/11/19 13:58 Urine pH 6.5 (5.0 - 8.0) 06/11/19 13:58 Ur Specific [place] 1.010 (1.000-1.030) 06/11/19 13:58 Urine Protein 3+ (NEGATIVE) 06/11/19 13:58 Urine Glucose (UA) 2+ (NEGATIVE) 06/11/19 13:58 Urine Ketones 2+ (NEGATIVE) 06/11/19 13:58 Urine Occult Blood 2+ (NEGATIVE) 06/11/19 13:58 Urine Nitrite Positive (NEGATIVE) 06/11/19 13:58 Urine Bilirubin 1+ (NEGATIVE) 06/11/19 13:58 Urine Urobilinogen 2+ (NORMAL) 06/11/19 13:58 Ur Leukocyte Esterase 1+ (NEGATIVE) 06/11/19 13:58 Urine RBC 3-5 /HPF (0-3) A 06/11/19 13:58 Urine WBC 0-2 /HPF (0-5) 06/11/19 13:58 Ur Squamous Epith Cells Rare /HPF (NEGATIVE) 06/11/19 13:58 Urine Bacteria Trace /HPF (NEGATIVE) 06/11/19 13:58 Urine Mucus Few /HPF (NEGATIVE) 06/11/19 13:58 Ur Culture Indicated? Yes/culture set up 06/11/19 13:58 Ethyl Alcohol mg/dL < 3 mg/dL (0-19.9) 06/11/19 05:20 Ethyl Alcohol mg/dL Cancelled 06/11/19 05:20 - Assessment and Plan 1: acute pancreatitis with large pseudocyst in the body and tail . thrombocytopenia . UTI. same plan . clear liquid today . - Problem Patient Problems: Patient Problems UTI (urinary tract infection) (Acute) N39.0 Sinus tachycardia (Acute) R00.0 ETOH abuse (Acute) F10.10 Accelerated hypertension (Acute) I10 Acute alcoholic pancreatitis (Acute) K85.20 Thrombocytopenia (Acute) D69.6 Erythrocytosis (Acute) D75.1 Cyst and pseudocyst of pancreas (Acute) K86.2, K86.3 Abdominal pain (Acute) R10.9
[2019-06-12] MEDS ORDERED: ATIVAN INJ 2 MG VIAL IVP PRN (10:11)
[2019-06-12] MEDS: LOVENOX INJ 40 MG SYR SC SCH (14:21)
[2019-06-12] MEDS: NS IV SCH ×5 (17:14)
[2019-06-12] MEDS: [UNRECOGNIZED DRUG - OTHER] IV SCH ×5 (17:14)
[2019-06-12] MEDS: MAGNESIUM SULFATE IV SCH ×5 (17:14)
[2019-06-12] MEDS: MVI IV SCH ×5 (17:14)
[2019-06-13] MEDS: NS IV SCH ×5
[2019-06-13] MEDS: MAGNESIUM SULFATE IV SCH ×5
[2019-06-13] MEDS: [UNRECOGNIZED DRUG - OTHER] IV SCH ×5
[2019-06-13] MEDS: MVI IV SCH ×5
[2019-06-13] MEDS: NS 1000 ML 1,000 ML IV SCH ×3 (01:35→18:21)
[2019-06-13] MEDS: LIBRIUM PO SCH ×4 (05:37→22:07)
[2019-06-13] MEDS: ANCEF VIAL 1 GRAM IVP SCH (05:38)
[2019-06-13 05:44] LABS: BASOPHILS % (AUTO) 0.2 % (0.2-1.0); EOSINOPHILS % (AUTO) 0.1 % (0.9-2.9); HEMATOCRIT 42.6 % (42.0-54.0); LYMPHOCYTES # (AUTO) 0.4 X10^3/uL (1.3-2.9); LYMPHOCYTES % (AUTO) 4.4 % (21.0-51.0); MEAN CORPUSCULAR HEMOGLOBIN 34.8 pg (27.0-34.0); MEAN CORPUSCULAR HGB CONC 34.9 g/dL (33.0-35.0); MEAN CORPUSCULAR VOLUME 99.8 fL (80.0-100.0); MONOCYTES # (AUTO) 0.8 x10^3/uL (0.3-0.8); MONOCYTES % (AUTO) 8.6 % (0.0-13.0); NEUTROPHILS # (AUTO) 7.7 x10^3/uL (2.2-4.8); NEUTROPHILS % (AUTO) 86.7 % (42.0-75.0); PLATELET COUNT 74 X10^3/uL (150.0-450.0); RED BLOOD COUNT 4.26 X10^6/uL (4.7-6.0); RED CELL DISTRIBUTION WIDTH 14.9 % (11.6-16.5); WHITE BLOOD COUNT 8.8 X10^3/uL (3.6-10.0)
[2019-06-13 05:54] LABS: ALANINE AMINOTRANSFERASE 71 Units/L (12-78); ALBUMIN 2.7 g/dL (3.4-5.0); ALKALINE PHOSPHATASE 63 Units/L (46-116); AMYLASE 138 Units/L (25-115); ASPARTATE AMINO TRANSFERASE 115 Units/L (15-37); BLOOD UREA NITROGEN 19 mg/dL (7-18); CALCIUM 6.8 mg/dL (8.5-10.1); CARBON DIOXIDE 29.6 mmol/L (21-32); CHLORIDE 96 mmol/L (98-107); COR CA(FOR HYPOALB) 7.8 mg/dL (8.5-10.1); COR NA(FOR HYPERGLY) 133 mmol/L (136-145); CREATININE 1.25 mg/dL (0.70-1.30); MAGNESIUM 3.2 mg/dL (1.7-2.9); SODIUM 132 mmol/L (136-145); TOTAL PROTEIN 6.1 g/dL (6.4-8.2); eGFR NON BLACK RACES > 60 (>60)
[2019-06-13 06:03] LABS: BAND NEUTROPHILS % 10 % (0-10); HEMOGLOBIN 14.9 g/dL (13.5-18.0)
[2019-06-13 06:04] LABS: PLATELET MORPHOLOGY COMMENT NORMAL (NORMAL)
--- NOTE | 2019-06-13 08:21 | PCM.PROG ---
Progress Note Progress Note for Day of Date of Exam: 06/13/19 Subjective Subjective: Patient seen at bedside, no overnight events. He states his abdominal pain is better. He was very jittery and agitated yesterday, pulled out his IV and required a dose of IV Ativan. He reports doing better today. He is wheezing and feels SOB when lying flat. Labs reviewed: Mg and K stable, LFTs and renal function improved. Platelets trending down. Plan: will get an CXR, duonebs TID, stop banana bag, start oral thiamine and MV, clears today and advance as per surgery, continue gentle hydration with NS at 50cc/hr. Hold Lovenox, add SCDs. Urine cultures negative, currently on Ancef. Le vaquin stopped yesterday due to prolonged QTC. Monitor AM labs and vitals. Past Medical Family Social History Past Med/Fam/Surg Hx: No changes since H&P Allergies: Allergies No Known Drug Allergies Allergy (Verified 06/11/19 05:10) Review of Systems ROS: No change since H&P Vital Signs and I&O's Vital Signs: Temperature 99.3 F Pulse Rate [Left Radial] 98 Pulse Rate 102 Respiratory Rate 32 Blood Pressure [Left Arm] 132/74 Blood Pressure 165/121 O2 Sat by Pulse Oximetry 92 Intake and Output: Intake & Output 06/10/19 06/11/19 06/12/19 06/13/19 23:59 23:59 23:59 23:59 Intake Total 1558 / 1558 3766 / 3766 200 / 200 Output Total 575 / 575 200 / 200 Balance 983 / 983 3566 / 3566 200 / 200 Physical Exam Oriented: Normal Eyes: Normal Ear: Normal Nose: Normal Respiratory: Wheezes Cardiovascular: Normal and Tachycardia Auscultation: Bowel Sounds: Normal Tenderness: Epigastric and Mild Musculoskeletal: Normal Psychiatric: Normal Mood Description: Calm Affect: Normal Speech Pattern: Clear and Appropriate Laboratory and Diagnostics Result Diagrams: 06/13/19 04:15 06/13/19 04:15 Labs: 06/11/19 13:58 Urine,Clean Catch Urine Culture - Preliminary Laboratory WBC 8.8 X10^3/uL (3.6-10.0) 06/13/19 04:15 RBC 4.26 X10^6/uL (4.7-6.0) L 06/13/19 04:15 Hgb 14.9 g/dL (13.5-18.0) D 06/13/19 04:15 Hct 42.6 % (42.0-54.0) 06/13/19 04:15 MCV 99.8 fL (80.0-100.0) 06/13/19 04:15 MCH 34.8 pg (27.0-34.0) H 06/13/19 04:15 MCHC 34.9 g/dL (33.0-35.0) 06/13/19 04:15 RDW 14.9 % (11.6-16.5) 06/13/19 04:15 Plt Count 74 X10^3/uL (150.0-450.0) L 06/13/19 04:15 Plt Count Comment Decreased (ADEQUATE) 06/13/19 04:15 MPV 10.0 fL (7.4-11.0) 06/13/19 04:15 Neut % (Auto) 86.7 % (42.0-75.0) H 06/13/19 04:15 Lymph % (Auto) 4.4 % (21.0-51.0) L 06/13/19 04:15 [place] % (Auto) 8.6 % (0.0-13.0) 06/13/19 04:15 Eos % (Auto) 0.1 % (0.9-2.9) L 06/13/19 04:15 Baso % (Auto) 0.2 % (0.2-1.0) 06/13/19 04:15 Neut # (Auto) 7.7 x10^3/uL (2.2-4.8) H 06/13/19 04:15 Lymph # (Auto) 0.4 X10^3/uL (1.3-2.9) L 06/13/19 04:15 [place] # (Auto) 0.8 x10^3/uL (0.3-0.8) 06/13/19 04:15 Eos # (Auto) 0.0 x10^3/uL (0.0-0.2) 06/13/19 04:15 Baso # (Auto) 0.0 X10^3/uL (0.0-0.1) 06/13/19 04:15 Absolute Nucleated RBC 0.2 /100WBC 06/13/19 04:15 Total Counted 100 06/13/19 04:15 Neutrophils % (Manual) 77 % (39-76) H 06/13/19 04:15 Band Neutrophils % 10 % (0-10) 06/13/19 04:15 Lymphocytes % (Manual) 4 % (13-43) L 06/13/19 04:15 Monocytes % (Manual) 9 % (4-9) 06/13/19 04:15 Metamyelocytes % 3 06/12/19 05:15 Giant Platelets Present 06/12/19 05:15 Plt Morphology Comment Normal (NORMAL) 06/13/19 04:15 RBC Morphology Normal (NORMAL) 06/13/19 04:15 Sodium 132 mmol/L (136-145) L 06/13/19 04:15 Corrected Sodium 133 mmol/L (136-145) L 06/13/19 04:15 Potassium 3.5 mmol/L (3.5-5.1) 06/13/19 04:15 Chloride 96 mmol/L (98-107) L 06/13/19 04:15 Carbon Dioxide 29.6 mmol/L (21-32) 06/13/19 04:15 BUN 19 mg/dL (7-18) H 06/13/19 04:15 Creatinine 1.25 mg/dL (0.70-1.30) 06/13/19 04:15 Est GFR (MDRD) Af Amer > 60 (>60) 06/13/19 04:15 Est GFR (MDRD) Non-Af > 60 (>60) 06/13/19 04:15 Glucose 122 mg/dL (65-99) H 06/13/19 04:15 POC Glucose (mg/dL) 164 mg/dL (65-99) H 06/12/19 05:29 Calcium 6.8 mg/dL (8.5-10.1) L 06/13/19 04:15 Corrected Calcium 7.8 mg/dL (8.5-10.1) L 06/13/19 04:15 Magnesium 3.2 mg/dL (1.7-2.9) H 06/13/19 04:15 Total Bilirubin 5.40 mg/dL (0.2-1.0) H 06/13/19 04:15 AST 115 Units/L (15-37) H 06/13/19 04:15 ALT 71 Units/L (12-78) 06/13/19 04:15 Alkaline Phosphatase 63 Units/L (46-116) 06/13/19 04:15 Total Protein 6.1 g/dL (6.4-8.2) L 06/13/19 04:15 Albumin 2.7 g/dL (3.4-5.0) L 06/13/19 04:15 Globulin 3.4 g/dL (2.5-4.5) 06/13/19 04:15 Albumin/Globulin Ratio 0.8 Ratio (1.1-2.1) L 06/13/19 04:15 Triglycerides 115 mg/dL (0-150) 06/11/19 14:59 Cholesterol 181 mg/dL (0-200) 06/11/19 14:59 LDL Cholesterol, Calc 109 mg/dL (0-100) H 06/11/19 14:59 HDL Cholesterol 49 mg/dL (40-60) 06/11/19 14:59 Cholesterol/HDL Ratio 3.7 (0.0-5.0) 06/11/19 14:59 Amylase 138 Units/L (25-115) H 06/13/19 04:15 Lipase 888 Units/L (73-393) H 06/13/19 04:15 Specimen Type Clean catch urine 06/11/19 13:58 Urine Color [place] (YELLOW) 06/11/19 13:58 Urine Appearance Clear (CLEAR) 06/11/19 13:58 Urine pH 6.5 (5.0 - 8.0) 06/11/19 13:58 Ur Specific [place] 1.010 (1.000-1.030) 06/11/19 13:58 Urine Protein 3+ (NEGATIVE) 06/11/19 13:58 Urine Glucose (UA) 2+ (NEGATIVE) 06/11/19 13:58 Urine Ketones 2+ (NEGATIVE) 06/11/19 13:58 Urine Occult Blood 2+ (NEGATIVE) 06/11/19 13:58 Urine Nitrite Positive (NEGATIVE) 06/11/19 13:58 Urine Bilirubin 1+ (NEGATIVE) 06/11/19 13:58 Urine Urobilinogen 2+ (NORMAL) 06/11/19 13:58 Ur Leukocyte Esterase 1+ (NEGATIVE) 06/11/19 13:58 Urine RBC 3-5 /HPF (0-3) A 06/11/19 13:58 Urine WBC 0-2 /HPF (0-5) 06/11/19 13:58 Ur Squamous Epith Cells Rare /HPF (NEGATIVE) 06/11/19 13:58 Urine Bacteria Trace /HPF (NEGATIVE) 06/11/19 13:58 Urine Mucus Few /HPF (NEGATIVE) 06/11/19 13:58 Ur Culture Indicated? Yes/culture set up 06/11/19 13:58 Ethyl Alcohol mg/dL < 3 mg/dL (0-19.9) 06/11/19 05:20 Ethyl Alcohol mg/dL Cancelled 06/11/19 05:20 Plan (1) Acute alcoholic pancreatitis: Status: Acute Qualifiers: Acute pancreatitis complication: no infection or necrosis Qualified Code(s): K85.20 - Alcohol induced acute pancreatitis without necrosis or infection (2) Thrombocytopenia: Status: Acute (3) Cyst and pseudocyst of pancreas: Status: Acute (4) Accelerated hypertension: Status: Acute (5) ETOH abuse: Status: Acute (6) Sinus tachycardia: Status: Acute (7) UTI (urinary tract infection): Status: Acute Qualifiers: Hematuria presence: without hematuria Urinary tract infection type: acute cystitis Qualified Code(s): N30.00 - Acute cystitis without hematuria
[2019-06-13] MEDS: LOPRESSOR TAB 25 MG PO SCH ×2 (09:05→21:00)
[2019-06-13] MEDS: PROTONIX INJ 40 MG VIAL IVP SCH (09:06)
[2019-06-13] MEDS: TAB-A-VITE PO SCH (09:10)
--- NOTE | 2019-06-13 09:12 | RAD ---
HISTORYWHEEZING, PANCREATITISSTUDYCHEST, 1 VIEWCOMPARISONNoneFINDINGSDegree of inspiration is limited. Heart size and pulmonary vasculature are normal. Combination of left basilar atelectasis and possible small effusion are present. Remainder of the lungs are clear. No pleural effusion is seen on the right. Bony thorax is unremarkable.IMPRESSIONLeft basilar atelectasis and possible small effusion.Electronically signed by: KELL FELIX (Jun 13, 2019 09:10:40)
[2019-06-13] MEDS: DILAUDID INJ IVP PRN ×2 (09:30→22:07)
[2019-06-13] MEDS: DUONEB 0.5 MG/3 MG (3 mL) NEB SCH ×3 (10:14→20:59)
[2019-06-13] MEDS: ANCEF 1 GRAM IV PREMIX* 1 G/50 ML BAG IV SCH ×2 (14:07→22:07)
[2019-06-13] MEDS: VITAMIN B-1 PO SCH (14:07)
--- NOTE | 2019-06-13 15:12 | DR.PROGNOT ---
Hospital Progress Notes - Progress Note for Day of: Progress Note Date: 06/13/19 - Chief Complaint Chief Complaint: less abdominal pain and passing flatus . SOB with wheezing today . episodes of anxiety and agitation . LFT , Amylase Lipase are down. platelets 74.000. lipase 888.. Amylase 138. chest xray mild atelectasis and small pleural effusion . O2 97 on O2 nc - Past Medical Family Social History Past Med/Fam/Surg Hx: No changes since H&P Allergies: Allergies No Known Drug Allergies Allergy (Verified 06/11/19 05:10) - Review Of Systems ROS: No change since H&P - Vital Signs Vital Signs: Temperature 98.9 F Pulse Rate [Left Radial] 98 Pulse Rate 96 Respiratory Rate 20 Blood Pressure [Left Arm] 120/70 Blood Pressure 165/121 O2 Sat by Pulse Oximetry 92 - Physical Exam Oriented: Normal Eyes: Normal Ear: Normal Nose: Normal Respiratory: Wheezes (moderate bilateral wheezing ) Cardiovascular: Tachycardia, Normal GI:Auscultation: Normal GI: Tenderness: Epigastric (moderate distention and hypoactive BS ), Mild Skin: Diaphoresis Musculoskeletal: Normal Psychiatric: Normal Mood Description: Calm Affect: Normal Speech Pattern: Clear, Appropriate - Laboratory and Diagnostics Result Diagrams: 06/13/19 04:15 06/13/19 04:15 Labs: 06/11/19 13:58 Urine,Clean Catch Urine Culture - Final Laboratory WBC 8.8 X10^3/uL (3.6-10.0) 06/13/19 04:15 RBC 4.26 X10^6/uL (4.7-6.0) L 06/13/19 04:15 Hgb 14.9 g/dL (13.5-18.0) D 06/13/19 04:15 Hct 42.6 % (42.0-54.0) 06/13/19 04:15 MCV 99.8 fL (80.0-100.0) 06/13/19 04:15 MCH 34.8 pg (27.0-34.0) H 06/13/19 04:15 MCHC 34.9 g/dL (33.0-35.0) 06/13/19 04:15 RDW 14.9 % (11.6-16.5) 06/13/19 04:15 Plt Count 74 X10^3/uL (150.0-450.0) L 06/13/19 04:15 Plt Count Comment Decreased (ADEQUATE) 06/13/19 04:15 MPV 10.0 fL (7.4-11.0) 06/13/19 04:15 Neut % (Auto) 86.7 % (42.0-75.0) H 06/13/19 04:15 Lymph % (Auto) 4.4 % (21.0-51.0) L 06/13/19 04:15 [place] % (Auto) 8.6 % (0.0-13.0) 06/13/19 04:15 Eos % (Auto) 0.1 % (0.9-2.9) L 06/13/19 04:15 Baso % (Auto) 0.2 % (0.2-1.0) 06/13/19 04:15 Neut # (Auto) 7.7 x10^3/uL (2.2-4.8) H 06/13/19 04:15 Lymph # (Auto) 0.4 X10^3/uL (1.3-2.9) L 06/13/19 04:15 [place] # (Auto) 0.8 x10^3/uL (0.3-0.8) 06/13/19 04:15 Eos # (Auto) 0.0 x10^3/uL (0.0-0.2) 06/13/19 04:15 Baso # (Auto) 0.0 X10^3/uL (0.0-0.1) 06/13/19 04:15 Absolute Nucleated RBC 0.2 /100WBC 06/13/19 04:15 Total Counted 100 06/13/19 04:15 Neutrophils % (Manual) 77 % (39-76) H 06/13/19 04:15 Band Neutrophils % 10 % (0-10) 06/13/19 04:15 Lymphocytes % (Manual) 4 % (13-43) L 06/13/19 04:15 Monocytes % (Manual) 9 % (4-9) 06/13/19 04:15 Metamyelocytes % 3 06/12/19 05:15 Giant Platelets Present 06/12/19 05:15 Plt Morphology Comment Normal (NORMAL) 06/13/19 04:15 RBC Morphology Normal (NORMAL) 06/13/19 04:15 Sodium 132 mmol/L (136-145) L 06/13/19 04:15 Corrected Sodium 133 mmol/L (136-145) L 06/13/19 04:15 Potassium 3.5 mmol/L (3.5-5.1) 06/13/19 04:15 Chloride 96 mmol/L (98-107) L 06/13/19 04:15 Carbon Dioxide 29.6 mmol/L (21-32) 06/13/19 04:15 BUN 19 mg/dL (7-18) H 06/13/19 04:15 Creatinine 1.25 mg/dL (0.70-1.30) 06/13/19 04:15 Est GFR (MDRD) Af Amer > 60 (>60) 06/13/19 04:15 Est GFR (MDRD) Non-Af > 60 (>60) 06/13/19 04:15 Glucose 122 mg/dL (65-99) H 06/13/19 04:15 POC Glucose (mg/dL) 164 mg/dL (65-99) H 06/12/19 05:29 Calcium 6.8 mg/dL (8.5-10.1) L 06/13/19 04:15 Corrected Calcium 7.8 mg/dL (8.5-10.1) L 06/13/19 04:15 Magnesium 3.2 mg/dL (1.7-2.9) H 06/13/19 04:15 Total Bilirubin 5.40 mg/dL (0.2-1.0) H 06/13/19 04:15 AST 115 Units/L (15-37) H 06/13/19 04:15 ALT 71 Units/L (12-78) 06/13/19 04:15 Alkaline Phosphatase 63 Units/L (46-116) 06/13/19 04:15 Total Protein 6.1 g/dL (6.4-8.2) L 06/13/19 04:15 Albumin 2.7 g/dL (3.4-5.0) L 06/13/19 04:15 Globulin 3.4 g/dL (2.5-4.5) 06/13/19 04:15 Albumin/Globulin Ratio 0.8 Ratio (1.1-2.1) L 06/13/19 04:15 Triglycerides 115 mg/dL (0-150) 06/11/19 14:59 Cholesterol 181 mg/dL (0-200) 06/11/19 14:59 LDL Cholesterol, Calc 109 mg/dL (0-100) H 06/11/19 14:59 HDL Cholesterol 49 mg/dL (40-60) 06/11/19 14:59 Cholesterol/HDL Ratio 3.7 (0.0-5.0) 06/11/19 14:59 Amylase 138 Units/L (25-115) H 06/13/19 04:15 Lipase 888 Units/L (73-393) H 06/13/19 04:15 Carcinoembryonic Ag 2.5 ng/mL (0.0-3.0) 06/11/19 05:20 Specimen Type Clean catch urine 06/11/19 13:58 Urine Color [place] (YELLOW) 06/11/19 13:58 Urine Appearance Clear (CLEAR) 06/11/19 13:58 Urine pH 6.5 (5.0 - 8.0) 06/11/19 13:58 Ur Specific [place] 1.010 (1.000-1.030) 06/11/19 13:58 Urine Protein 3+ (NEGATIVE) 06/11/19 13:58 Urine Glucose (UA) 2+ (NEGATIVE) 06/11/19 13:58 Urine Ketones 2+ (NEGATIVE) 06/11/19 13:58 Urine Occult Blood 2+ (NEGATIVE) 06/11/19 13:58 Urine Nitrite Positive (NEGATIVE) 06/11/19 13:58 Urine Bilirubin 1+ (NEGATIVE) 06/11/19 13:58 Urine Urobilinogen 2+ (NORMAL) 06/11/19 13:58 Ur Leukocyte Esterase 1+ (NEGATIVE) 06/11/19 13:58 Urine RBC 3-5 /HPF (0-3) A 06/11/19 13:58 Urine WBC 0-2 /HPF (0-5) 06/11/19 13:58 Ur Squamous Epith Cells Rare /HPF (NEGATIVE) 06/11/19 13:58 Urine Bacteria Trace /HPF (NEGATIVE) 06/11/19 13:58 Urine Mucus Few /HPF (NEGATIVE) 06/11/19 13:58 Ur Culture Indicated? Yes/culture set up 06/11/19 13:58 Ethyl Alcohol mg/dL < 3 mg/dL (0-19.9) 06/11/19 05:20 Ethyl Alcohol mg/dL Cancelled 06/11/19 05:20 - Assessment and Plan 1: acute pancreatitis with large pseudocyst in the body and tail of pancrease . thrombocytopenia . moderate hypoxia with brochospasm . jaundice. UTI. same plan . on full liquid diet . - Problem Patient Problems: Patient Problems UTI (urinary tract infection) (Acute) N39.0 Sinus tachycardia (Acute) R00.0 ETOH abuse (Acute) F10.10 Accelerated hypertension (Acute) I10 Acute alcoholic pancreatitis (Acute) K85.20 Thrombocytopenia (Acute) D69.6 Erythrocytosis (Acute) D75.1 Cyst and pseudocyst of pancreas (Acute) K86.2, K86.3 Abdominal pain (Acute) R10.9
[2019-06-14] MEDS: DUONEB 0.5 MG/3 MG (3 mL) NEB SCH (05:05)
[2019-06-14] MEDS: ANCEF 1 GRAM IV PREMIX* 1 G/50 ML BAG IV SCH (05:15)
[2019-06-14] MEDS: LIBRIUM PO SCH ×4 (05:15→21:30)
[2019-06-14 05:47] LABS: BASOPHILS % (AUTO) 0.2 % (0.2-1.0); EOSINOPHILS # (AUTO) 0.1 x10^3/uL (0.0-0.2); HEMATOCRIT 42.7 % (42.0-54.0); HEMOGLOBIN 14.9 g/dL (13.5-18.0); LYMPHOCYTES # (AUTO) 0.7 X10^3/uL (1.3-2.9); LYMPHOCYTES % (AUTO) 8.2 % (21.0-51.0); MEAN CORPUSCULAR HEMOGLOBIN 34.8 pg (27.0-34.0); MEAN CORPUSCULAR HGB CONC 34.9 g/dL (33.0-35.0); MEAN CORPUSCULAR VOLUME 99.5 fL (80.0-100.0); MEAN PLATELET VOLUME 10.4 fL (7.4-11.0); MONOCYTES # (AUTO) 1.1 x10^3/uL (0.3-0.8); MONOCYTES % (AUTO) 13.9 % (0.0-13.0); NEUTROPHILS # (AUTO) 6.4 x10^3/uL (2.2-4.8); NEUTROPHILS % (AUTO) 76.7 % (42.0-75.0); PLATELET COUNT 92 X10^3/uL (150.0-450.0); RED BLOOD COUNT 4.29 X10^6/uL (4.7-6.0)
[2019-06-14 05:58] LABS: ALANINE AMINOTRANSFERASE 94 Units/L (12-78); ALBUMIN 2.6 g/dL (3.4-5.0); ALKALINE PHOSPHATASE 84 Units/L (46-116); ASPARTATE AMINO TRANSFERASE 198 Units/L (15-37); BLOOD UREA NITROGEN 9 mg/dL (7-18); CALCIUM 7.5 mg/dL (8.5-10.1); CARBON DIOXIDE 32.7 mmol/L (21-32); CHLORIDE 95 mmol/L (98-107); COR CA(FOR HYPOALB) 8.6 mg/dL (8.5-10.1); SODIUM 134 mmol/L (136-145); TOTAL PROTEIN 6.4 g/dL (6.4-8.2); eGFR NON BLACK RACES > 60 (>60)
[2019-06-14 06:00] LABS: WHITE BLOOD COUNT 9.9 X10^3/uL (3.6-10.0)
[2019-06-14 06:01] LABS: BAND NEUTROPHILS % 8 % (0-10)
[2019-06-14 06:02] LABS: PLATELET MORPHOLOGY COMMENT NORMAL (NORMAL)
[2019-06-14] MEDS: PROTONIX INJ 40 MG VIAL IVP SCH (08:33)
[2019-06-14] MEDS: VITAMIN B-1 PO SCH (08:34)
[2019-06-14] MEDS: LOPRESSOR TAB 25 MG PO SCH ×2 (08:34→21:30)
[2019-06-14] MEDS: TAB-A-VITE PO SCH (08:34)
[2019-06-14] MEDS ORDERED: SOLU-Medrol 125 MG VIAL IVP ONE (08:36)
--- NOTE | 2019-06-14 08:36 | CT ---
HISTORYFOLLOW UP PSEUDOCYST, pancreatitisSTUDYCT ABDOMEN/PELVIS WITH IV CONCOMPARISONCT 05/2019TECHNIQUEMultiple axial images of the abdomen and pelvis were obtained from the lung bases to the pubic symphysis after the administration of IV contrast. Dose reduction techniques including Automated Exposure Control (AEC) and adjustment of mA and kV were utilized.FINDINGSThe visualized portions of the lung bases suggest probable increased atelectasis bilaterally compared to prior study. Trace left pleural effusion.Fatty infiltration of the liver and hepatomegaly. Spleen is normal in size. Accessory splenule is seen anteriorly.Gallbladder appears normal. No biliary ductal dilation.Persistent pancreatitis is unchanged. Pseudocyst in the tail of the pancreas measures 9.0 x 7.2 cm. It is unchanged in size.The adrenal glands appear normal.Simple cyst is suspected in the superior pole of the left kidney measuring 1.6 cm. Right kidney appears normal. Ureters and bladder appear normal.No bowel abnormalities are seen. Appendix is not seen but no pericecal inflammation is seen.Prostate gland is normal in size. Possible tiny left inguinal hernia containing fat.Abdominal aorta is normal in size.No suspicious lymphadenopathy.No free intraperitoneal air is seen.No acute bony abnormality is seen.IMPRESSIONAcute pancreatitis is unchanged since prior study. Stable appearing 9.0 x 7.2 cm pseudocyst in the tail of the pancreas.Electronically signed by: Richard Coy (Jun 14, 2019 08:35:44)
[2019-06-14] MEDS: DILAUDID INJ IVP PRN (08:38)
--- NOTE | 2019-06-14 08:57 | RAD ---
HISTORYWHEEZINGSTUDYCHEST x-ray, 1 VIEWCOMPARISONX-ray 06/13/2019FINDINGSPoor inspiration and lordotic positioning limit evaluation. Heart is probably normal in size. No pneumothorax, focal infiltrate, or pleural effusion is seen. Left lingular opacity seen on prior study has resolved.IMPRESSIONNo acute cardiopulmonary abnormality is seen.Electronically signed by: Richard Coy (Jun 14, 2019 08:55:03)
[2019-06-14] MEDS ORDERED: MUCOMYST 20% 200 MG/ML NEB SCH (09:00)
--- NOTE | 2019-06-14 09:14 | PCM.PROG ---
Progress Note Progress Note for Day of Date of Exam: 06/14/19 Subjective Subjective: No acute events overnight, patient seen at bedside. He was wheezing again this morning and reports some labored breathing with ambulation. He states it's slightly improved from yesterday. He reports some cough and congestion, improved with duonebs. His abdominal pain is improving, worse at night. He was able to tolerate liquids. Denies N/V. Labs: K-3.2 platelets trending up, LFTs slightly up. Urine Cx no growth Plan: f/u repeat CTAP and CXR today, continue gentle hydration with NS, advance diet as per surgery, add mucomyst, solumedrol x 1, check for COVID. Will DC abx Past Medical Family Social History Past Med/Fam/Surg Hx: No changes since H&P Allergies: Allergies No Known Drug Allergies Allergy (Verified 06/11/19 05:10) Review of Systems ROS: No change since H&P Vital Signs and I&O's Vital Signs: Temperature 98.4 F Pulse Rate [Left Radial] 97 Pulse Rate 97 Respiratory Rate 20 Blood Pressure [Left Arm] 129/76 Blood Pressure 165/121 O2 Sat by Pulse Oximetry 93 Intake and Output: Intake & Output 06/11/19 06/12/19 06/13/19 06/14/19 23:59 23:59 23:59 23:59 Intake Total 1558 / 1558 3766 / 3766 1480 / 1480 369 / 369 Output Total 575 / 575 200 / 200 Balance 983 / 983 3566 / 3566 1480 / 1480 369 / 369 Physical Exam Oriented: Normal Eyes: Normal Ear: Normal Nose: Normal Respiratory: Wheezes (moderate bilateral wheezing ) Cardiovascular: Normal and Tachycardia Auscultation: Bowel Sounds: Normal Tenderness: Epigastric (moderate distention and hypoactive BS ) and Mild Musculoskeletal: Normal Psychiatric: Normal Mood Description: Calm Affect: Normal Speech Pattern: Clear and Appropriate Laboratory and Diagnostics Result Diagrams: 06/14/19 04:10 06/14/19 04:10 Labs: 06/11/19 13:58 Urine,Clean Catch Urine Culture - Final Laboratory WBC 9.9 X10^3/uL (3.6-10.0) 06/14/19 04:10 RBC 4.29 X10^6/uL (4.7-6.0) L 06/14/19 04:10 Hgb 14.9 g/dL (13.5-18.0) 06/14/19 04:10 Hct 42.7 % (42.0-54.0) 06/14/19 04:10 MCV 99.5 fL (80.0-100.0) 06/14/19 04:10 MCH 34.8 pg (27.0-34.0) H 06/14/19 04:10 MCHC 34.9 g/dL (33.0-35.0) 06/14/19 04:10 RDW 15.0 % (11.6-16.5) 06/14/19 04:10 Plt Count 92 X10^3/uL (150.0-450.0) L 06/14/19 04:10 Plt Count Comment Decreased (ADEQUATE) 06/14/19 04:10 MPV 10.4 fL (7.4-11.0) 06/14/19 04:10 Neut % (Auto) 76.7 % (42.0-75.0) H 06/14/19 04:10 Lymph % (Auto) 8.2 % (21.0-51.0) L 06/14/19 04:10 [place] % (Auto) 13.9 % (0.0-13.0) H 06/14/19 04:10 Eos % (Auto) 1.0 % (0.9-2.9) 06/14/19 04:10 Baso % (Auto) 0.2 % (0.2-1.0) 06/14/19 04:10 Neut # (Auto) 6.4 x10^3/uL (2.2-4.8) H 06/14/19 04:10 Lymph # (Auto) 0.7 X10^3/uL (1.3-2.9) L 06/14/19 04:10 [place] # (Auto) 1.1 x10^3/uL (0.3-0.8) H 06/14/19 04:10 Eos # (Auto) 0.1 x10^3/uL (0.0-0.2) 06/14/19 04:10 Baso # (Auto) 0.0 X10^3/uL (0.0-0.1) 06/14/19 04:10 Absolute Nucleated RBC 0.4 /100WBC 06/14/19 04:10 Total Counted 100 06/14/19 04:10 Neutrophils % (Manual) 72 % (39-76) 06/14/19 04:10 Band Neutrophils % 8 % (0-10) 06/14/19 04:10 Lymphocytes % (Manual) 8 % (13-43) L 06/14/19 04:10 Monocytes % (Manual) 11 % (4-9) H 06/14/19 04:10 Eosinophils % (Manual) 1 % (0-6) 06/14/19 04:10 Metamyelocytes % 3 06/12/19 05:15 Giant Platelets Present 06/12/19 05:15 Plt Morphology Comment Normal (NORMAL) 06/14/19 04:10 RBC Morphology Normal (NORMAL) 06/14/19 04:10 Sodium 134 mmol/L (136-145) L 06/14/19 04:10 Corrected Sodium TNP 06/14/19 04:10 Potassium 3.2 mmol/L (3.5-5.1) L 06/14/19 04:10 Chloride 95 mmol/L (98-107) L 06/14/19 04:10 Carbon Dioxide 32.7 mmol/L (21-32) H 06/14/19 04:10 BUN 9 mg/dL (7-18) 06/14/19 04:10 Creatinine 0.90 mg/dL (0.70-1.30) 06/14/19 04:10 Est GFR (MDRD) Af Amer > 60 (>60) 06/14/19 04:10 Est GFR (MDRD) Non-Af > 60 (>60) 06/14/19 04:10 Glucose 110 mg/dL (65-99) H 06/14/19 04:10 POC Glucose (mg/dL) 164 mg/dL (65-99) H 06/12/19 05:29 Calcium 7.5 mg/dL (8.5-10.1) L 06/14/19 04:10 Corrected Calcium 8.6 mg/dL (8.5-10.1) 06/14/19 04:10 Magnesium 3.2 mg/dL (1.7-2.9) H 06/13/19 04:15 Total Bilirubin 5.70 mg/dL (0.2-1.0) H 06/14/19 04:10 AST 198 Units/L (15-37) H 06/14/19 04:10 ALT 94 Units/L (12-78) H 06/14/19 04:10 Alkaline Phosphatase 84 Units/L (46-116) 06/14/19 04:10 Total Protein 6.4 g/dL (6.4-8.2) 06/14/19 04:10 Albumin 2.6 g/dL (3.4-5.0) L 06/14/19 04:10 Globulin 3.8 g/dL (2.5-4.5) 06/14/19 04:10 Albumin/Globulin Ratio 0.7 Ratio (1.1-2.1) L 06/14/19 04:10 Triglycerides 115 mg/dL (0-150) 06/11/19 14:59 Cholesterol 181 mg/dL (0-200) 06/11/19 14:59 LDL Cholesterol, Calc 109 mg/dL (0-100) H 06/11/19 14:59 HDL Cholesterol 49 mg/dL (40-60) 06/11/19 14:59 Cholesterol/HDL Ratio 3.7 (0.0-5.0) 06/11/19 14:59 Amylase 138 Units/L (25-115) H 06/13/19 04:15 Lipase 888 Units/L (73-393) H 06/13/19 04:15 Carcinoembryonic Ag 2.5 ng/mL (0.0-3.0) 06/11/19 05:20 Specimen Type Clean catch urine 06/11/19 13:58 Urine Color [place] (YELLOW) 06/11/19 13:58 Urine Appearance Clear (CLEAR) 06/11/19 13:58 Urine pH 6.5 (5.0 - 8.0) 06/11/19 13:58 Ur Specific [place] 1.010 (1.000-1.030) 06/11/19 13:58 Urine Protein 3+ (NEGATIVE) 06/11/19 13:58 Urine Glucose (UA) 2+ (NEGATIVE) 06/11/19 13:58 Urine Ketones 2+ (NEGATIVE) 06/11/19 13:58 Urine Occult Blood 2+ (NEGATIVE) 06/11/19 13:58 Urine Nitrite Positive (NEGATIVE) 06/11/19 13:58 Urine Bilirubin 1+ (NEGATIVE) 06/11/19 13:58 Urine Urobilinogen 2+ (NORMAL) 06/11/19 13:58 Ur Leukocyte Esterase 1+ (NEGATIVE) 06/11/19 13:58 Urine RBC 3-5 /HPF (0-3) A 06/11/19 13:58 Urine WBC 0-2 /HPF (0-5) 06/11/19 13:58 Ur Squamous Epith Cells Rare /HPF (NEGATIVE) 06/11/19 13:58 Urine Bacteria Trace /HPF (NEGATIVE) 06/11/19 13:58 Urine Mucus Few /HPF (NEGATIVE) 06/11/19 13:58 Ur Culture Indicated? Yes/culture set up 06/11/19 13:58 Ethyl Alcohol mg/dL < 3 mg/dL (0-19.9) 06/11/19 05:20 Ethyl Alcohol mg/dL Cancelled 06/11/19 05:20 Plan (1) Acute dyspnea: Status: Acute (2) Acute alcoholic pancreatitis: Status: Acute Qualifiers: Acute pancreatitis complication: no infection or necrosis Qualified Code(s): K85.20 - Alcohol induced acute pancreatitis without necrosis or infection (3) Thrombocytopenia: Status: Acute (4) Cyst and pseudocyst of pancreas: Status: Acute (5) Accelerated hypertension: Status: Acute (6) ETOH abuse: Status: Acute (7) Sinus tachycardia: Status: Acute (8) UTI (urinary tract infection): Status: Acute Qualifiers: Hematuria presence: without hematuria Urinary tract infection type: acute cystitis Qualified Code(s): N30.00 - Acute cystitis without hematuria
[2019-06-14] MEDS ORDERED: SOLU-Medrol 125 MG VIAL ONE (11:34)
[2019-06-14] MEDS: VENTOLIN or PROAIR HFA IN PRN ×2 (17:25→21:30)
[2019-06-14] MEDS: NS 1000 ML 1,000 ML IV SCH ×2 (17:37→17:39)
--- NOTE | 2019-06-14 22:55 | DR.PROGNOT ---
Hospital Progress Notes - Progress Note for Day of: Progress Note Date: 06/14/19 - Chief Complaint Chief Complaint: still having SOB with wheezing .mild cough and hypoxia. LFT , Amylase Lipase are down. platelets 93.000. bilirubim 5.7 - Past Medical Family Social History Past Med/Fam/Surg Hx: No changes since H&P Allergies: Allergies No Known Drug Allergies Allergy (Verified 06/11/19 05:10) - Review Of Systems ROS: No change since H&P - Vital Signs Vital Signs: Temperature 98.1 F Pulse Rate [Left Radial] 91 Pulse Rate 74 Respiratory Rate 22 Blood Pressure [Left Arm] 124/79 Blood Pressure 98/54 O2 Sat by Pulse Oximetry 93 - Physical Exam Oriented: Normal Eyes: Normal Ear: Normal Nose: Normal Respiratory: Wheezes (moderate bilateral wheezing) Cardiovascular: Tachycardia, Normal GI:Auscultation: Normal GI: Tenderness: Epigastric (moderate distention and hypoactive BS), Mild Skin: Diaphoresis Musculoskeletal: Normal Psychiatric: Normal Mood Description: Calm Affect: Normal Speech Pattern: Clear, Appropriate - Laboratory and Diagnostics Result Diagrams: 06/14/19 04:10 06/14/19 04:10 Labs: 06/11/19 13:58 Urine,Clean Catch Urine Culture - Final Laboratory WBC 9.9 X10^3/uL (3.6-10.0) 06/14/19 04:10 RBC 4.29 X10^6/uL (4.7-6.0) L 06/14/19 04:10 Hgb 14.9 g/dL (13.5-18.0) 06/14/19 04:10 Hct 42.7 % (42.0-54.0) 06/14/19 04:10 MCV 99.5 fL (80.0-100.0) 06/14/19 04:10 MCH 34.8 pg (27.0-34.0) H 06/14/19 04:10 MCHC 34.9 g/dL (33.0-35.0) 06/14/19 04:10 RDW 15.0 % (11.6-16.5) 06/14/19 04:10 Plt Count 92 X10^3/uL (150.0-450.0) L 06/14/19 04:10 Plt Count Comment Decreased (ADEQUATE) 06/14/19 04:10 MPV 10.4 fL (7.4-11.0) 06/14/19 04:10 Neut % (Auto) 76.7 % (42.0-75.0) H 06/14/19 04:10 Lymph % (Auto) 8.2 % (21.0-51.0) L 06/14/19 04:10 [place] % (Auto) 13.9 % (0.0-13.0) H 06/14/19 04:10 Eos % (Auto) 1.0 % (0.9-2.9) 06/14/19 04:10 Baso % (Auto) 0.2 % (0.2-1.0) 06/14/19 04:10 Neut # (Auto) 6.4 x10^3/uL (2.2-4.8) H 06/14/19 04:10 Lymph # (Auto) 0.7 X10^3/uL (1.3-2.9) L 06/14/19 04:10 [place] # (Auto) 1.1 x10^3/uL (0.3-0.8) H 06/14/19 04:10 Eos # (Auto) 0.1 x10^3/uL (0.0-0.2) 06/14/19 04:10 Baso # (Auto) 0.0 X10^3/uL (0.0-0.1) 06/14/19 04:10 Absolute Nucleated RBC 0.4 /100WBC 06/14/19 04:10 Total Counted 100 06/14/19 04:10 Neutrophils % (Manual) 72 % (39-76) 06/14/19 04:10 Band Neutrophils % 8 % (0-10) 06/14/19 04:10 Lymphocytes % (Manual) 8 % (13-43) L 06/14/19 04:10 Monocytes % (Manual) 11 % (4-9) H 06/14/19 04:10 Eosinophils % (Manual) 1 % (0-6) 06/14/19 04:10 Metamyelocytes % 3 06/12/19 05:15 Giant Platelets Present 06/12/19 05:15 Plt Morphology Comment Normal (NORMAL) 06/14/19 04:10 RBC Morphology Normal (NORMAL) 06/14/19 04:10 Sodium 134 mmol/L (136-145) L 06/14/19 04:10 Corrected Sodium TNP 06/14/19 04:10 Potassium 3.2 mmol/L (3.5-5.1) L 06/14/19 04:10 Chloride 95 mmol/L (98-107) L 06/14/19 04:10 Carbon Dioxide 32.7 mmol/L (21-32) H 06/14/19 04:10 BUN 9 mg/dL (7-18) 06/14/19 04:10 Creatinine 0.90 mg/dL (0.70-1.30) 06/14/19 04:10 Est GFR (MDRD) Af Amer > 60 (>60) 06/14/19 04:10 Est GFR (MDRD) Non-Af > 60 (>60) 06/14/19 04:10 Glucose 110 mg/dL (65-99) H 06/14/19 04:10 POC Glucose (mg/dL) 164 mg/dL (65-99) H 06/12/19 05:29 Calcium 7.5 mg/dL (8.5-10.1) L 06/14/19 04:10 Corrected Calcium 8.6 mg/dL (8.5-10.1) 06/14/19 04:10 Magnesium 3.2 mg/dL (1.7-2.9) H 06/13/19 04:15 Total Bilirubin 5.70 mg/dL (0.2-1.0) H 06/14/19 04:10 AST 198 Units/L (15-37) H 06/14/19 04:10 ALT 94 Units/L (12-78) H 06/14/19 04:10 Alkaline Phosphatase 84 Units/L (46-116) 06/14/19 04:10 Total Protein 6.4 g/dL (6.4-8.2) 06/14/19 04:10 Albumin 2.6 g/dL (3.4-5.0) L 06/14/19 04:10 Globulin 3.8 g/dL (2.5-4.5) 06/14/19 04:10 Albumin/Globulin Ratio 0.7 Ratio (1.1-2.1) L 06/14/19 04:10 Triglycerides 115 mg/dL (0-150) 06/11/19 14:59 Cholesterol 181 mg/dL (0-200) 06/11/19 14:59 LDL Cholesterol, Calc 109 mg/dL (0-100) H 06/11/19 14:59 HDL Cholesterol 49 mg/dL (40-60) 06/11/19 14:59 Cholesterol/HDL Ratio 3.7 (0.0-5.0) 06/11/19 14:59 Amylase 138 Units/L (25-115) H 06/13/19 04:15 Lipase 888 Units/L (73-393) H 06/13/19 04:15 Carcinoembryonic Ag 2.5 ng/mL (0.0-3.0) 06/11/19 05:20 Specimen Type Clean catch urine 06/11/19 13:58 Urine Color [place] (YELLOW) 06/11/19 13:58 Urine Appearance Clear (CLEAR) 06/11/19 13:58 Urine pH 6.5 (5.0 - 8.0) 06/11/19 13:58 Ur Specific [place] 1.010 (1.000-1.030) 06/11/19 13:58 Urine Protein 3+ (NEGATIVE) 06/11/19 13:58 Urine Glucose (UA) 2+ (NEGATIVE) 06/11/19 13:58 Urine Ketones 2+ (NEGATIVE) 06/11/19 13:58 Urine Occult Blood 2+ (NEGATIVE) 06/11/19 13:58 Urine Nitrite Positive (NEGATIVE) 06/11/19 13:58 Urine Bilirubin 1+ (NEGATIVE) 06/11/19 13:58 Urine Urobilinogen 2+ (NORMAL) 06/11/19 13:58 Ur Leukocyte Esterase 1+ (NEGATIVE) 06/11/19 13:58 Urine RBC 3-5 /HPF (0-3) A 06/11/19 13:58 Urine WBC 0-2 /HPF (0-5) 06/11/19 13:58 Ur Squamous Epith Cells Rare /HPF (NEGATIVE) 06/11/19 13:58 Urine Bacteria Trace /HPF (NEGATIVE) 06/11/19 13:58 Urine Mucus Few /HPF (NEGATIVE) 06/11/19 13:58 Ur Culture Indicated? Yes/culture set up 06/11/19 13:58 Ethyl Alcohol mg/dL < 3 mg/dL (0-19.9) 06/11/19 05:20 Ethyl Alcohol mg/dL Cancelled 06/11/19 05:20 - Assessment and Plan 1: acute pancreatitis with large pseudocyst in the body and tail of pancrease . thrombocytopenia . moderate hypoxia with brochospasm . jaundice. UTI. same plan . on low fat diet. to check for Covid 19 - Problem Patient Problems: Patient Problems Acute dyspnea (Acute) R06.00 UTI (urinary tract infection) (Acute) N39.0 Sinus tachycardia (Acute) R00.0 ETOH abuse (Acute) F10.10 Accelerated hypertension (Acute) I10 Acute alcoholic pancreatitis (Acute) K85.20 Thrombocytopenia (Acute) D69.6 Erythrocytosis (Acute) D75.1 Cyst and pseudocyst of pancreas (Acute) K86.2, K86.3 Abdominal pain (Acute) R10.9
[2019-06-15] MEDS: LIBRIUM PO SCH ×3 (05:21→21:56)
[2019-06-15 06:25] LABS: BASOPHILS % (AUTO) 0.2 % (0.2-1.0); HEMATOCRIT 36.7 % (42.0-54.0); HEMOGLOBIN 12.9 g/dL (13.5-18.0); LYMPHOCYTES # (AUTO) 0.3 X10^3/uL (1.3-2.9); LYMPHOCYTES % (AUTO) 5.1 % (21.0-51.0); MEAN CORPUSCULAR HEMOGLOBIN 34.6 pg (27.0-34.0); MEAN CORPUSCULAR HGB CONC 35.1 g/dL (33.0-35.0); MEAN CORPUSCULAR VOLUME 98.5 fL (80.0-100.0); MEAN PLATELET VOLUME 8.9 fL (7.4-11.0); MONOCYTES % (AUTO) 16.8 % (0.0-13.0); NEUTROPHILS # (AUTO) 4.5 x10^3/uL (2.2-4.8); NEUTROPHILS % (AUTO) 77.9 % (42.0-75.0); PLATELET COUNT 120 X10^3/uL (150.0-450.0); RED BLOOD COUNT 3.73 X10^6/uL (4.7-6.0); RED CELL DISTRIBUTION WIDTH 14.8 % (11.6-16.5); WHITE BLOOD COUNT 5.8 X10^3/uL (3.6-10.0)
[2019-06-15 06:42] LABS: ALANINE AMINOTRANSFERASE 128 Units/L (12-78); ALBUMIN 2.5 g/dL (3.4-5.0); ALKALINE PHOSPHATASE 92 Units/L (46-116); ASPARTATE AMINO TRANSFERASE 238 Units/L (15-37); BLOOD UREA NITROGEN 8 mg/dL (7-18); CALCIUM 8.4 mg/dL (8.5-10.1); CARBON DIOXIDE 31.1 mmol/L (21-32); CHLORIDE 101 mmol/L (98-107); COR CA(FOR HYPOALB) 9.6 mg/dL (8.5-10.1); COR NA(FOR HYPERGLY) 141 mmol/L (136-145); CREATININE 0.97 mg/dL (0.70-1.30); SODIUM 139 mmol/L (136-145); eGFR NON BLACK RACES > 60 (>60)
[2019-06-15 07:04] LABS: BAND NEUTROPHILS % 4 % (0-10); PLATELET MORPHOLOGY COMMENT NORMAL (NORMAL)
[2019-06-15] MEDS: NS 1000 ML 1,000 ML IV SCH (07:16)
[2019-06-15] MEDS: POTASSIUM CHLORIDE LIQ 20 MEQ UDC PO PRN ×2 (07:46→19:19)
[2019-06-15 08:48] LABS: AMYLASE 32 Units/L (25-115); LIPASE 169 Units/L (73-393)
[2019-06-15] MEDS: LOPRESSOR TAB 25 MG PO SCH ×2 (09:04→21:56)
[2019-06-15] MEDS: VITAMIN B-1 PO SCH (09:05)
[2019-06-15] MEDS: PROTONIX INJ 40 MG VIAL IVP SCH (09:05)
[2019-06-15] MEDS: PREDNISONE TAB 20 MG PO SCH ×2 (09:05→09:28)
[2019-06-15] MEDS: TAB-A-VITE PO SCH (09:05)
[2019-06-15] MEDS ORDERED: PREDNISONE TAB 20 MG PO ONE ×2 (09:06→09:09)
[2019-06-15] MEDS: NORCO 10/325 TAB PO PRN ×2 (11:42→21:56)
[2019-06-15] MEDS: VIBRAMYCIN PO SCH (11:48)
[2019-06-15] MEDS: VENTOLIN or PROAIR HFA IN SCH ×2 (13:00→16:55)
--- NOTE | 2019-06-15 13:52 | PCM.PROG ---
Progress Note Progress Note for Day of Date of Exam: 06/15/19 Subjective Subjective: Patient seen at bedside, no acute events noted. Patient states he is feeling better, abdominal pain has improved. He states his breathing is not as labored as it was and the inhaler has been helping a lot. He has been coughing up phlegm, wheezing has improved. He states he was able to tolerate the diet yesterday. He had diarrhea, no nausea or vomiting. Labs: LFTs trending up, K: 3.0 , Total bilirubin trending down Vitals stable Plan: replace K, advance diet as per surgery, change Dilaudid to PO [place], add prednisone and doxycycline, continue albuterol prn. Monitor AM labs. Follow up COVID-19 results. Taper Librium. Will DC abx Past Medical Family Social History Past Med/Fam/Surg Hx: No changes since H&P Allergies: Allergies No Known Drug Allergies Allergy (Verified 06/11/19 05:10) Review of Systems ROS: No change since H&P Vital Signs and I&O's Vital Signs: Temperature 98.2 F Pulse Rate [Left Radial] 91 Pulse Rate 74 Respiratory Rate 18 Blood Pressure [Left Arm] 124/79 Blood Pressure 115/71 O2 Sat by Pulse Oximetry 94 Intake and Output: Intake & Output 06/12/19 06/13/19 06/14/19 06/15/19 23:59 23:59 23:59 23:59 Intake Total 3766 / 3766 1480 / 1480 1940 / 1940 782 / 782 Output Total 200 / 200 400 / 400 450 / 450 Balance 3566 / 3566 1480 / 1480 1540 / 1540 332 / 332 Physical Exam Oriented: Normal Eyes: Normal Ear: Normal Nose: Normal Respiratory: Wheezes (improved ) Cardiovascular: Normal Auscultation: Bowel Sounds: Normal Tenderness: Epigastric (moderate distention and hypoactive BS ) and Mild Musculoskeletal: Normal Psychiatric: Normal Mood Description: Calm Affect: Normal Speech Pattern: Clear and Appropriate Laboratory and Diagnostics Result Diagrams: 06/15/19 05:05 06/15/19 05:05 Labs: 06/11/19 13:58 Urine,Clean Catch Urine Culture - Final Laboratory WBC 5.8 X10^3/uL (3.6-10.0) 06/15/19 05:05 RBC 3.73 X10^6/uL (4.7-6.0) L 06/15/19 05:05 Hgb 12.9 g/dL (13.5-18.0) L D 06/15/19 05:05 Hct 36.7 % (42.0-54.0) L 06/15/19 05:05 MCV 98.5 fL (80.0-100.0) 06/15/19 05:05 MCH 34.6 pg (27.0-34.0) H 06/15/19 05:05 MCHC 35.1 g/dL (33.0-35.0) H 06/15/19 05:05 RDW 14.8 % (11.6-16.5) 06/15/19 05:05 Plt Count 120 X10^3/uL (150.0-450.0) L 06/15/19 05:05 Plt Count Comment Decreased (ADEQUATE) 06/15/19 05:05 MPV 8.9 fL (7.4-11.0) 06/15/19 05:05 Neut % (Auto) 77.9 % (42.0-75.0) H 06/15/19 05:05 Lymph % (Auto) 5.1 % (21.0-51.0) L 06/15/19 05:05 [place] % (Auto) 16.8 % (0.0-13.0) H 06/15/19 05:05 Eos % (Auto) 0.0 % (0.9-2.9) L 06/15/19 05:05 Baso % (Auto) 0.2 % (0.2-1.0) 06/15/19 05:05 Neut # (Auto) 4.5 x10^3/uL (2.2-4.8) 06/15/19 05:05 Lymph # (Auto) 0.3 X10^3/uL (1.3-2.9) L 06/15/19 05:05 [place] # (Auto) 1.0 x10^3/uL (0.3-0.8) H 06/15/19 05:05 Eos # (Auto) 0.0 x10^3/uL (0.0-0.2) 06/15/19 05:05 Baso # (Auto) 0.0 X10^3/uL (0.0-0.1) 06/15/19 05:05 Absolute Nucleated RBC 0.4 /100WBC 06/15/19 05:05 Total Counted 100 06/15/19 05:05 Neutrophils % (Manual) 72 % (39-76) 06/15/19 05:05 Band Neutrophils % 4 % (0-10) 06/15/19 05:05 Lymphocytes % (Manual) 14 % (13-43) 06/15/19 05:05 Monocytes % (Manual) 10 % (4-9) H 06/15/19 05:05 Eosinophils % (Manual) 1 % (0-6) 06/14/19 04:10 Metamyelocytes % 3 06/12/19 05:15 Giant Platelets Present 06/12/19 05:15 Plt Morphology Comment Normal (NORMAL) 06/15/19 05:05 RBC Morphology Normal (NORMAL) 06/15/19 05:05 Sodium 139 mmol/L (136-145) 06/15/19 05:05 Corrected Sodium 141 mmol/L (136-145) 06/15/19 05:05 Potassium 3.0 mmol/L (3.5-5.1) L* 06/15/19 05:05 Chloride 101 mmol/L (98-107) 06/15/19 05:05 Carbon Dioxide 31.1 mmol/L (21-32) 06/15/19 05:05 BUN 8 mg/dL (7-18) 06/15/19 05:05 Creatinine 0.97 mg/dL (0.70-1.30) 06/15/19 05:05 Est GFR (MDRD) Af Amer > 60 (>60) 06/15/19 05:05 Est GFR (MDRD) Non-Af > 60 (>60) 06/15/19 05:05 Glucose 201 mg/dL (65-99) H 06/15/19 05:05 POC Glucose (mg/dL) 164 mg/dL (65-99) H 06/12/19 05:29 Calcium 8.4 mg/dL (8.5-10.1) L 06/15/19 05:05 Corrected Calcium 9.6 mg/dL (8.5-10.1) 06/15/19 05:05 Magnesium 3.2 mg/dL (1.7-2.9) H 06/13/19 04:15 Total Bilirubin 4.80 mg/dL (0.2-1.0) H 06/15/19 05:05 AST 238 Units/L (15-37) H 06/15/19 05:05 ALT 128 Units/L (12-78) H 06/15/19 05:05 Alkaline Phosphatase 92 Units/L (46-116) 06/15/19 05:05 Total Protein 6.0 g/dL (6.4-8.2) L 06/15/19 05:05 Albumin 2.5 g/dL (3.4-5.0) L 06/15/19 05:05 Globulin 3.5 g/dL (2.5-4.5) 06/15/19 05:05 Albumin/Globulin Ratio 0.7 Ratio (1.1-2.1) L 06/15/19 05:05 Triglycerides 115 mg/dL (0-150) 06/11/19 14:59 Cholesterol 181 mg/dL (0-200) 06/11/19 14:59 LDL Cholesterol, Calc 109 mg/dL (0-100) H 06/11/19 14:59 HDL Cholesterol 49 mg/dL (40-60) 06/11/19 14:59 Cholesterol/HDL Ratio 3.7 (0.0-5.0) 06/11/19 14:59 Amylase 32 Units/L (25-115) 06/15/19 05:05 Lipase 169 Units/L (73-393) 06/15/19 05:05 Carcinoembryonic Ag 2.5 ng/mL (0.0-3.0) 06/11/19 05:20 Specimen Type Clean catch urine 06/11/19 13:58 Urine Color [place] (YELLOW) 06/11/19 13:58 Urine Appearance Clear (CLEAR) 06/11/19 13:58 Urine pH 6.5 (5.0 - 8.0) 06/11/19 13:58 Ur Specific [place] 1.010 (1.000-1.030) 06/11/19 13:58 Urine Protein 3+ (NEGATIVE) 06/11/19 13:58 Urine Glucose (UA) 2+ (NEGATIVE) 06/11/19 13:58 Urine Ketones 2+ (NEGATIVE) 06/11/19 13:58 Urine Occult Blood 2+ (NEGATIVE) 06/11/19 13:58 Urine Nitrite Positive (NEGATIVE) 06/11/19 13:58 Urine Bilirubin 1+ (NEGATIVE) 06/11/19 13:58 Urine Urobilinogen 2+ (NORMAL) 06/11/19 13:58 Ur Leukocyte Esterase 1+ (NEGATIVE) 06/11/19 13:58 Urine RBC 3-5 /HPF (0-3) A 06/11/19 13:58 Urine WBC 0-2 /HPF (0-5) 06/11/19 13:58 Ur Squamous Epith Cells Rare /HPF (NEGATIVE) 06/11/19 13:58 Urine Bacteria Trace /HPF (NEGATIVE) 06/11/19 13:58 Urine Mucus Few /HPF (NEGATIVE) 06/11/19 13:58 Ur Culture Indicated? Yes/culture set up 06/11/19 13:58 Ethyl Alcohol mg/dL < 3 mg/dL (0-19.9) 06/11/19 05:20 Ethyl Alcohol mg/dL Cancelled 06/11/19 05:20 Plan (1) Acute dyspnea: Status: Acute (2) Acute alcoholic pancreatitis: Status: Acute Qualifiers: Acute pancreatitis complication: no infection or necrosis Qualified Code(s): K85.20 - Alcohol induced acute pancreatitis without necrosis or infection (3) Thrombocytopenia: Status: Acute (4) Cyst and pseudocyst of pancreas: Status: Acute (5) Accelerated hypertension: Status: Acute (6) ETOH abuse: Status: Acute (7) Sinus tachycardia: Status: Acute (8) UTI (urinary tract infection): Status: Acute Qualifiers: Hematuria presence: without hematuria Urinary tract infection type: acute cystitis Qualified Code(s): N30.00 - Acute cystitis without hematuria
--- NOTE | 2019-06-15 15:13 | DR.PROGNOT ---
Hospital Progress Notes - Progress Note for Day of: Progress Note Date: 06/15/19 - Chief Complaint Chief Complaint: still having moderate SOB with wheezing .mild cough and hypoxia. LFT slightly up , Amylase Lipase normal - Past Medical Family Social History Past Med/Fam/Surg Hx: No changes since H&P Allergies: Allergies No Known Drug Allergies Allergy (Verified 06/11/19 05:10) - Review Of Systems ROS: No change since H&P - Vital Signs Vital Signs: Temperature 98.2 F Pulse Rate [Left Radial] 91 Pulse Rate 77 Respiratory Rate 18 Blood Pressure [Left Arm] 124/79 Blood Pressure 115/71 O2 Sat by Pulse Oximetry 94 - Physical Exam Oriented: Normal Eyes: Other (icteric sclera ) Ear: Normal Nose: Normal Respiratory: Wheezes (mild bilateral wheezing) Cardiovascular: Normal GI:Auscultation: Normal GI: Tenderness: Epigastric (moderate distention and hypoactive BS), Mild Skin: Diaphoresis Musculoskeletal: Normal Psychiatric: Normal Mood Description: Calm Affect: Normal Speech Pattern: Clear, Appropriate - Laboratory and Diagnostics Result Diagrams: 06/15/19 05:05 06/15/19 05:05 Labs: 06/11/19 13:58 Urine,Clean Catch Urine Culture - Final Laboratory WBC 5.8 X10^3/uL (3.6-10.0) 06/15/19 05:05 RBC 3.73 X10^6/uL (4.7-6.0) L 06/15/19 05:05 Hgb 12.9 g/dL (13.5-18.0) L D 06/15/19 05:05 Hct 36.7 % (42.0-54.0) L 06/15/19 05:05 MCV 98.5 fL (80.0-100.0) 06/15/19 05:05 MCH 34.6 pg (27.0-34.0) H 06/15/19 05:05 MCHC 35.1 g/dL (33.0-35.0) H 06/15/19 05:05 RDW 14.8 % (11.6-16.5) 06/15/19 05:05 Plt Count 120 X10^3/uL (150.0-450.0) L 06/15/19 05:05 Plt Count Comment Decreased (ADEQUATE) 06/15/19 05:05 MPV 8.9 fL (7.4-11.0) 06/15/19 05:05 Neut % (Auto) 77.9 % (42.0-75.0) H 06/15/19 05:05 Lymph % (Auto) 5.1 % (21.0-51.0) L 06/15/19 05:05 [place] % (Auto) 16.8 % (0.0-13.0) H 06/15/19 05:05 Eos % (Auto) 0.0 % (0.9-2.9) L 06/15/19 05:05 Baso % (Auto) 0.2 % (0.2-1.0) 06/15/19 05:05 Neut # (Auto) 4.5 x10^3/uL (2.2-4.8) 06/15/19 05:05 Lymph # (Auto) 0.3 X10^3/uL (1.3-2.9) L 06/15/19 05:05 [place] # (Auto) 1.0 x10^3/uL (0.3-0.8) H 06/15/19 05:05 Eos # (Auto) 0.0 x10^3/uL (0.0-0.2) 06/15/19 05:05 Baso # (Auto) 0.0 X10^3/uL (0.0-0.1) 06/15/19 05:05 Absolute Nucleated RBC 0.4 /100WBC 06/15/19 05:05 Total Counted 100 06/15/19 05:05 Neutrophils % (Manual) 72 % (39-76) 06/15/19 05:05 Band Neutrophils % 4 % (0-10) 06/15/19 05:05 Lymphocytes % (Manual) 14 % (13-43) 06/15/19 05:05 Monocytes % (Manual) 10 % (4-9) H 06/15/19 05:05 Eosinophils % (Manual) 1 % (0-6) 06/14/19 04:10 Metamyelocytes % 3 06/12/19 05:15 Giant Platelets Present 06/12/19 05:15 Plt Morphology Comment Normal (NORMAL) 06/15/19 05:05 RBC Morphology Normal (NORMAL) 06/15/19 05:05 Sodium 139 mmol/L (136-145) 06/15/19 05:05 Corrected Sodium 141 mmol/L (136-145) 06/15/19 05:05 Potassium 3.0 mmol/L (3.5-5.1) L* 06/15/19 05:05 Chloride 101 mmol/L (98-107) 06/15/19 05:05 Carbon Dioxide 31.1 mmol/L (21-32) 06/15/19 05:05 BUN 8 mg/dL (7-18) 06/15/19 05:05 Creatinine 0.97 mg/dL (0.70-1.30) 06/15/19 05:05 Est GFR (MDRD) Af Amer > 60 (>60) 06/15/19 05:05 Est GFR (MDRD) Non-Af > 60 (>60) 06/15/19 05:05 Glucose 201 mg/dL (65-99) H 06/15/19 05:05 POC Glucose (mg/dL) 164 mg/dL (65-99) H 06/12/19 05:29 Calcium 8.4 mg/dL (8.5-10.1) L 06/15/19 05:05 Corrected Calcium 9.6 mg/dL (8.5-10.1) 06/15/19 05:05 Magnesium 3.2 mg/dL (1.7-2.9) H 06/13/19 04:15 Total Bilirubin 4.80 mg/dL (0.2-1.0) H 06/15/19 05:05 AST 238 Units/L (15-37) H 06/15/19 05:05 ALT 128 Units/L (12-78) H 06/15/19 05:05 Alkaline Phosphatase 92 Units/L (46-116) 06/15/19 05:05 Total Protein 6.0 g/dL (6.4-8.2) L 06/15/19 05:05 Albumin 2.5 g/dL (3.4-5.0) L 06/15/19 05:05 Globulin 3.5 g/dL (2.5-4.5) 06/15/19 05:05 Albumin/Globulin Ratio 0.7 Ratio (1.1-2.1) L 06/15/19 05:05 Triglycerides 115 mg/dL (0-150) 06/11/19 14:59 Cholesterol 181 mg/dL (0-200) 06/11/19 14:59 LDL Cholesterol, Calc 109 mg/dL (0-100) H 06/11/19 14:59 HDL Cholesterol 49 mg/dL (40-60) 06/11/19 14:59 Cholesterol/HDL Ratio 3.7 (0.0-5.0) 06/11/19 14:59 Amylase 32 Units/L (25-115) 06/15/19 05:05 Lipase 169 Units/L (73-393) 06/15/19 05:05 Carcinoembryonic Ag 2.5 ng/mL (0.0-3.0) 06/11/19 05:20 Specimen Type Clean catch urine 06/11/19 13:58 Urine Color [place] (YELLOW) 06/11/19 13:58 Urine Appearance Clear (CLEAR) 06/11/19 13:58 Urine pH 6.5 (5.0 - 8.0) 06/11/19 13:58 Ur Specific [place] 1.010 (1.000-1.030) 06/11/19 13:58 Urine Protein 3+ (NEGATIVE) 06/11/19 13:58 Urine Glucose (UA) 2+ (NEGATIVE) 06/11/19 13:58 Urine Ketones 2+ (NEGATIVE) 06/11/19 13:58 Urine Occult Blood 2+ (NEGATIVE) 06/11/19 13:58 Urine Nitrite Positive (NEGATIVE) 06/11/19 13:58 Urine Bilirubin 1+ (NEGATIVE) 06/11/19 13:58 Urine Urobilinogen 2+ (NORMAL) 06/11/19 13:58 Ur Leukocyte Esterase 1+ (NEGATIVE) 06/11/19 13:58 Urine RBC 3-5 /HPF (0-3) A 06/11/19 13:58 Urine WBC 0-2 /HPF (0-5) 06/11/19 13:58 Ur Squamous Epith Cells Rare /HPF (NEGATIVE) 06/11/19 13:58 Urine Bacteria Trace /HPF (NEGATIVE) 06/11/19 13:58 Urine Mucus Few /HPF (NEGATIVE) 06/11/19 13:58 Ur Culture Indicated? Yes/culture set up 06/11/19 13:58 Ethyl Alcohol mg/dL < 3 mg/dL (0-19.9) 06/11/19 05:20 Ethyl Alcohol mg/dL Cancelled 06/11/19 05:20 - Assessment and Plan 1: acute pancreatitis with large pseudocyst in the body and tail of pancrease . thrombocytopenia ( improving ). moderate dyspnea with brochospasm . jaundice. UTI. same plan . on low fat diet. to check for Covid 19 - Problem Patient Problems: Patient Problems Acute dyspnea (Acute) R06.00 UTI (urinary tract infection) (Acute) N39.0 Sinus tachycardia (Acute) R00.0 ETOH abuse (Acute) F10.10 Accelerated hypertension (Acute) I10 Acute alcoholic pancreatitis (Acute) K85.20 Thrombocytopenia (Acute) D69.6 Erythrocytosis (Acute) D75.1 Cyst and pseudocyst of pancreas (Acute) K86.2, K86.3 Abdominal pain (Acute) R10.9
[2019-06-15] MEDS ORDERED: NS 1000 ML 0 ML ONE (16:55)
[2019-06-16 05:25] LABS: BASOPHILS % (AUTO) 0.2 % (0.2-1.0); EOSINOPHILS % (AUTO) 0.3 % (0.9-2.9); HEMATOCRIT 38.3 % (42.0-54.0); HEMOGLOBIN 13.4 g/dL (13.5-18.0); LYMPHOCYTES # (AUTO) 0.7 X10^3/uL (1.3-2.9); LYMPHOCYTES % (AUTO) 9.2 % (21.0-51.0); MEAN CORPUSCULAR HEMOGLOBIN 34.3 pg (27.0-34.0); MEAN CORPUSCULAR HGB CONC 34.9 g/dL (33.0-35.0); MEAN CORPUSCULAR VOLUME 98.1 fL (80.0-100.0); MEAN PLATELET VOLUME 8.9 fL (7.4-11.0); MONOCYTES # (AUTO) 0.6 x10^3/uL (0.3-0.8); MONOCYTES % (AUTO) 8.4 % (0.0-13.0); NEUTROPHILS # (AUTO) 6.1 x10^3/uL (2.2-4.8); NEUTROPHILS % (AUTO) 81.9 % (42.0-75.0); PLATELET COUNT 170 X10^3/uL (150.0-450.0); RED CELL DISTRIBUTION WIDTH 15.7 % (11.6-16.5); WHITE BLOOD COUNT 7.4 X10^3/uL (3.6-10.0)
[2019-06-16 05:34] LABS: ALANINE AMINOTRANSFERASE 194 Units/L (12-78); ALBUMIN 2.4 g/dL (3.4-5.0); ALKALINE PHOSPHATASE 146 Units/L (46-116); ASPARTATE AMINO TRANSFERASE 297 Units/L (15-37); BLOOD UREA NITROGEN 9 mg/dL (7-18); CALCIUM 8.2 mg/dL (8.5-10.1); CARBON DIOXIDE 29.6 mmol/L (21-32); CHLORIDE 103 mmol/L (98-107); COR CA(FOR HYPOALB) 9.5 mg/dL (8.5-10.1); COR NA(FOR HYPERGLY) 141 mmol/L (136-145); CREATININE 0.97 mg/dL (0.70-1.30); MAGNESIUM 1.8 mg/dL (1.7-2.9); SODIUM 140 mmol/L (136-145); TOTAL PROTEIN 5.9 g/dL (6.4-8.2); eGFR NON BLACK RACES > 60 (>60)
[2019-06-16 05:56] LABS: BAND NEUTROPHILS % 5 % (0-10)
[2019-06-16 05:57] LABS: PLATELET MORPHOLOGY COMMENT NORMAL (NORMAL)
[2019-06-16] MEDS: K-DUR TAB 20 MEQ PO PRN (06:12)
[2019-06-16] MEDS: PROTONIX INJ 40 MG VIAL IVP SCH (08:45)
[2019-06-16] MEDS: K-DUR TAB 20 MEQ PO SCH (08:45)
[2019-06-16] MEDS: TAB-A-VITE PO SCH (08:45)
[2019-06-16] MEDS: VIBRAMYCIN PO SCH (08:45)
[2019-06-16] MEDS: LOVENOX INJ 40 MG SYR SC SCH (08:45)
[2019-06-16] MEDS: PREDNISONE TAB 20 MG PO SCH (08:45)
[2019-06-16] MEDS: VITAMIN B-1 PO SCH (08:45)
[2019-06-16] MEDS: LOPRESSOR TAB 25 MG PO SCH ×2 (08:45→22:53)
[2019-06-16] MEDS: LIBRIUM PO SCH ×2 (08:45→22:54)
--- NOTE | 2019-06-16 09:07 | RAD ---
HISTORYHypoxia with wheezingSTUDYPortable AP [id number] normal heart size with grossly clear lungs and pleural spa susanne. Evaluation of lung bases is limited by nonstandard portable technique and pulmonary underinflati on.IMPRESSIONNo acute chest abnormality identified.Electronically signed by: CUCO DAMIAN (Jun 16, 2019 09:06:40)
[2019-06-16] MEDS: ULTRAM PO PRN (09:10)
--- NOTE | 2019-06-16 10:14 | PCM.PROG ---
Progress Note Progress Note for Day of Date of Exam: 06/16/19 Subjective Subjective: No acute events overnight, patient seen at bedside. He reports improvement in breathing and abdominal pain. He has been tolerating the diet. He reports 2 loose BM's yesterday. Denies N/V. He has some productive cough with white sputum. He is currently on room air, sats > 95%. Labs: Total bili trending down, LFTs trending up, renal function normal, plt: 170, Glucose:161. COVID-19 negative. Plan: check hepatitis panel, A1C, resume lovenox, Repeat CXR. Will switch [place] to Tramadol for pain control as needed. Continue Doxycycline, advance diet as tolerated. Replace K, add potassium 20 meQ daily. Patient can be moved out of isolation. Past Medical Family Social History Past Med/Fam/Surg Hx: No changes since H&P Allergies: Allergies No Known Drug Allergies Allergy (Verified 06/11/19 05:10) Review of Systems ROS: No change since H&P Vital Signs and I&O's Vital Signs: Temperature 98.7 F Pulse Rate [Left Radial] 91 Pulse Rate 86 Respiratory Rate 24 Blood Pressure [Left Arm] 124/79 Blood Pressure 147/87 O2 Sat by Pulse Oximetry 96 Intake and Output: Intake & Output 06/13/19 06/14/19 06/15/19 06/16/19 23:59 23:59 23:59 23:59 Intake Total 1480 / 1480 1940 / 1940 1782 / 1782 1200 / 1200 Output Total 400 / 400 2550 / 2550 500 / 500 Balance 1480 / 1480 1540 / 1540 -768 / -768 700 / 700 Physical Exam Oriented: Normal Eyes: Other (icteric sclera ) Ear: Normal Nose: Normal Respiratory: Normal Cardiovascular: Tachycardia Auscultation: Bowel Sounds: Normal Tenderness: Epigastric (moderate distention ) and Mild Musculoskeletal: Normal Psychiatric: Normal Mood Description: Calm Affect: Normal Speech Pattern: Clear and Appropriate Laboratory and Diagnostics Result Diagrams: 06/16/19 05:00 06/16/19 08:41 Labs: 06/11/19 13:58 Urine,Clean Catch Urine Culture - Final Laboratory WBC 7.4 X10^3/uL (3.6-10.0) 06/16/19 05:00 RBC 3.90 X10^6/uL (4.7-6.0) L 06/16/19 05:00 Hgb 13.4 g/dL (13.5-18.0) L 06/16/19 05:00 Hct 38.3 % (42.0-54.0) L 06/16/19 05:00 MCV 98.1 fL (80.0-100.0) 06/16/19 05:00 MCH 34.3 pg (27.0-34.0) H 06/16/19 05:00 MCHC 34.9 g/dL (33.0-35.0) 06/16/19 05:00 RDW 15.7 % (11.6-16.5) 06/16/19 05:00 Plt Count 170 X10^3/uL (150.0-450.0) 06/16/19 05:00 Plt Count Comment Adequate (ADEQUATE) 06/16/19 05:00 MPV 8.9 fL (7.4-11.0) 06/16/19 05:00 Neut % (Auto) 81.9 % (42.0-75.0) H 06/16/19 05:00 Lymph % (Auto) 9.2 % (21.0-51.0) L 06/16/19 05:00 [place] % (Auto) 8.4 % (0.0-13.0) 06/16/19 05:00 Eos % (Auto) 0.3 % (0.9-2.9) L 06/16/19 05:00 Baso % (Auto) 0.2 % (0.2-1.0) 06/16/19 05:00 Neut # (Auto) 6.1 x10^3/uL (2.2-4.8) H 06/16/19 05:00 Lymph # (Auto) 0.7 X10^3/uL (1.3-2.9) L 06/16/19 05:00 [place] # (Auto) 0.6 x10^3/uL (0.3-0.8) 06/16/19 05:00 Eos # (Auto) 0.0 x10^3/uL (0.0-0.2) 06/16/19 05:00 Baso # (Auto) 0.0 X10^3/uL (0.0-0.1) 06/16/19 05:00 Absolute Nucleated RBC 0.9 /100WBC 06/16/19 05:00 Total Counted 100 06/16/19 05:00 Neutrophils % (Manual) 65 % (39-76) 06/16/19 05:00 Band Neutrophils % 5 % (0-10) 06/16/19 05:00 Lymphocytes % (Manual) 20 % (13-43) 06/16/19 05:00 Monocytes % (Manual) 10 % (4-9) H 06/16/19 05:00 Eosinophils % (Manual) 1 % (0-6) 06/14/19 04:10 Metamyelocytes % 3 06/12/19 05:15 Giant Platelets Present 06/12/19 05:15 Plt Morphology Comment Normal (NORMAL) 06/16/19 05:00 RBC Morphology Normal (NORMAL) 06/16/19 05:00 Sodium 140 mmol/L (136-145) 06/16/19 05:00 Corrected Sodium 141 mmol/L (136-145) 06/16/19 05:00 Potassium 3.5 mmol/L (3.5-5.1) 06/16/19 08:41 Chloride 103 mmol/L (98-107) 06/16/19 05:00 Carbon Dioxide 29.6 mmol/L (21-32) 06/16/19 05:00 BUN 9 mg/dL (7-18) 06/16/19 05:00 Creatinine 0.97 mg/dL (0.70-1.30) 06/16/19 05:00 Est GFR (MDRD) Af Amer > 60 (>60) 06/16/19 05:00 Est GFR (MDRD) Non-Af > 60 (>60) 06/16/19 05:00 Glucose 161 mg/dL (65-99) H 06/16/19 05:00 POC Glucose (mg/dL) 164 mg/dL (65-99) H 06/12/19 05:29 Hemoglobin A1c 5.5 % 06/16/19 08:41 Calcium 8.2 mg/dL (8.5-10.1) L 06/16/19 05:00 Corrected Calcium 9.5 mg/dL (8.5-10.1) 06/16/19 05:00 Magnesium 1.8 mg/dL (1.7-2.9) 06/16/19 05:00 Total Bilirubin 3.60 mg/dL (0.2-1.0) H 06/16/19 05:00 AST 297 Units/L (15-37) H 06/16/19 05:00 ALT 194 Units/L (12-78) H 06/16/19 05:00 Alkaline Phosphatase 146 Units/L (46-116) H 06/16/19 05:00 Total Protein 5.9 g/dL (6.4-8.2) L 06/16/19 05:00 Albumin 2.4 g/dL (3.4-5.0) L 06/16/19 05:00 Globulin 3.5 g/dL (2.5-4.5) 06/16/19 05:00 Albumin/Globulin Ratio 0.7 Ratio (1.1-2.1) L 06/16/19 05:00 Triglycerides 115 mg/dL (0-150) 06/11/19 14:59 Cholesterol 181 mg/dL (0-200) 06/11/19 14:59 LDL Cholesterol, Calc 109 mg/dL (0-100) H 06/11/19 14:59 HDL Cholesterol 49 mg/dL (40-60) 06/11/19 14:59 Cholesterol/HDL Ratio 3.7 (0.0-5.0) 06/11/19 14:59 Amylase 32 Units/L (25-115) 06/15/19 05:05 Lipase 169 Units/L (73-393) 06/15/19 05:05 Carcinoembryonic Ag 2.5 ng/mL (0.0-3.0) 06/11/19 05:20 Specimen Type Clean catch urine 06/11/19 13:58 Urine Color [place] (YELLOW) 06/11/19 13:58 Urine Appearance Clear (CLEAR) 06/11/19 13:58 Urine pH 6.5 (5.0 - 8.0) 06/11/19 13:58 Ur Specific [place] 1.010 (1.000-1.030) 06/11/19 13:58 Urine Protein 3+ (NEGATIVE) 06/11/19 13:58 Urine Glucose (UA) 2+ (NEGATIVE) 06/11/19 13:58 Urine Ketones 2+ (NEGATIVE) 06/11/19 13:58 Urine Occult Blood 2+ (NEGATIVE) 06/11/19 13:58 Urine Nitrite Positive (NEGATIVE) 06/11/19 13:58 Urine Bilirubin 1+ (NEGATIVE) 06/11/19 13:58 Urine Urobilinogen 2+ (NORMAL) 06/11/19 13:58 Ur Leukocyte Esterase 1+ (NEGATIVE) 06/11/19 13:58 Urine RBC 3-5 /HPF (0-3) A 06/11/19 13:58 Urine WBC 0-2 /HPF (0-5) 06/11/19 13:58 Ur Squamous Epith Cells Rare /HPF (NEGATIVE) 06/11/19 13:58 Urine Bacteria Trace /HPF (NEGATIVE) 06/11/19 13:58 Urine Mucus Few /HPF (NEGATIVE) 06/11/19 13:58 Ur Culture Indicated? Yes/culture set up 06/11/19 13:58 Ethyl Alcohol mg/dL < 3 mg/dL (0-19.9) 06/11/19 05:20 Ethyl Alcohol mg/dL Cancelled 06/11/19 05:20 Plan (1) Acute dyspnea: Status: Acute (2) Acute alcoholic pancreatitis: Status: Acute Qualifiers: Acute pancreatitis complication: no infection or necrosis Qualified Code(s): K85.20 - Alcohol induced acute pancreatitis without necrosis or infection (3) Thrombocytopenia: Status: Acute (4) Cyst and pseudocyst of pancreas: Status: Acute (5) Accelerated hypertension: Status: Acute (6) ETOH abuse: Status: Acute (7) Sinus tachycardia: Status: Acute (8) UTI (urinary tract infection): Status: Acute Qualifiers: Hematuria presence: without hematuria Urinary tract infection type: acute cystitis Qualified Code(s): N30.00 - Acute cystitis without hematuria
[2019-06-16] MEDS: VENTOLIN or PROAIR HFA IN SCH (20:45)
[2019-06-17] MEDS: ULTRAM PO PRN (03:00)
[2019-06-17] MEDS: LIBRIUM PO SCH ×3 (06:00→22:50)
[2019-06-17 06:02] LABS: BASOPHILS % (AUTO) 0.1 % (0.2-1.0); EOSINOPHILS % (AUTO) 0.3 % (0.9-2.9); HEMATOCRIT 41.7 % (42.0-54.0); HEMOGLOBIN 14.4 g/dL (13.5-18.0); LYMPHOCYTES # (AUTO) 0.7 X10^3/uL (1.3-2.9); LYMPHOCYTES % (AUTO) 6.5 % (21.0-51.0); MEAN CORPUSCULAR HGB CONC 34.6 g/dL (33.0-35.0); MEAN CORPUSCULAR VOLUME 98.1 fL (80.0-100.0); MEAN PLATELET VOLUME 8.6 fL (7.4-11.0); MONOCYTES # (AUTO) 0.3 x10^3/uL (0.3-0.8); MONOCYTES % (AUTO) 2.9 % (0.0-13.0); NEUTROPHILS # (AUTO) 10.1 x10^3/uL (2.2-4.8); NEUTROPHILS % (AUTO) 90.2 % (42.0-75.0); PLATELET COUNT 216 X10^3/uL (150.0-450.0); RED BLOOD COUNT 4.25 X10^6/uL (4.7-6.0); RED CELL DISTRIBUTION WIDTH 15.8 % (11.6-16.5); WHITE BLOOD COUNT 11.2 X10^3/uL (3.6-10.0)
[2019-06-17 06:30] LABS: ALANINE AMINOTRANSFERASE 208 Units/L (12-78); ALBUMIN 2.4 g/dL (3.4-5.0); ALKALINE PHOSPHATASE 198 Units/L (46-116); ASPARTATE AMINO TRANSFERASE 241 Units/L (15-37); BLOOD UREA NITROGEN 8 mg/dL (7-18); CALCIUM 8.1 mg/dL (8.5-10.1); CARBON DIOXIDE 28.7 mmol/L (21-32); CHLORIDE 102 mmol/L (98-107); COR CA(FOR HYPOALB) 9.4 mg/dL (8.5-10.1); COR NA(FOR HYPERGLY) 140 mmol/L (136-145); CREATININE 0.94 mg/dL (0.70-1.30); MAGNESIUM 1.5 mg/dL (1.7-2.9); SODIUM 138 mmol/L (136-145); TOTAL PROTEIN 5.9 g/dL (6.4-8.2); eGFR NON BLACK RACES > 60 (>60)
[2019-06-17 07:15] LABS: BAND NEUTROPHILS % 4 % (0-10); PLATELET MORPHOLOGY COMMENT NORMAL (NORMAL)
[2019-06-17] MEDS: PREDNISONE TAB 20 MG PO SCH (08:50)
[2019-06-17] MEDS: VIBRAMYCIN PO SCH (08:50)
[2019-06-17] MEDS: TAB-A-VITE PO SCH (08:50)
[2019-06-17] MEDS: PROTONIX INJ 40 MG VIAL IVP SCH (08:50)
[2019-06-17] MEDS: VITAMIN B-1 PO SCH (08:50)
[2019-06-17] MEDS: LOVENOX INJ 40 MG SYR SC SCH (08:50)
[2019-06-17] MEDS: LOPRESSOR TAB 25 MG PO SCH ×2 (08:50→22:00)
[2019-06-17] MEDS: K-DUR TAB 20 MEQ PO SCH (08:50)
--- NOTE | 2019-06-17 10:03 | PCM.PROG ---
Progress Note Progress Note for Day of Date of Exam: 06/17/19 Subjective Subjective: Patient seen at bedside, no events overnight. He was taken out of ICU and into med-surg due to neg COVID test. He reports feeling better, has been ambulating in the room. He states breathing is a lot better. His abdominal pain has improved, tolerating soft diet. He did have a temp of 100 early this morning. Denies N/V, diarrhea is improving. Labs: K-3.1 Mg-1.5 Hep panel pending, AST:241 ALT:208 Total Anthony: 3.8 Glu:163 A1C 5.5, WBC: 11.2 Plan: replace K and Mag as per protocol, follow pending labs, start SSI due to hyperglycemia, continue prednisone and doxycycline, will add Zosyn. Monitor AM labs. Past Medical Family Social History Past Med/Fam/Surg Hx: No changes since H&P Allergies: Allergies No Known Drug Allergies Allergy (Verified 06/11/19 05:10) Review of Systems ROS: No change since H&P Vital Signs and I&O's Vital Signs: Temperature 100.0 F Pulse Rate [Left Radial] 91 Pulse Rate 85 Respiratory Rate 24 Blood Pressure [Left Arm] 124/79 Blood Pressure 111/75 O2 Sat by Pulse Oximetry 96 Intake and Output: Intake & Output 06/14/19 06/15/19 06/16/19 06/17/19 23:59 23:59 23:59 23:59 Intake Total 1940 / 1940 1782 / 1782 2740 / 2740 360 / 360 Output Total 400 / 400 2550 / 2550 950 / 950 Balance 1540 / 1540 -768 / -768 1790 / 1790 360 / 360 Physical Exam Oriented: Normal Eyes: Normal Ear: Normal Nose: Normal Respiratory: Normal Cardiovascular: Normal Auscultation: Bowel Sounds: Decreased Tenderness: Epigastric (moderate distention ) Skin: Normal Musculoskeletal: Normal Psychiatric: Normal Mood Description: Calm Affect: Normal Speech Pattern: Clear and Appropriate Laboratory and Diagnostics Result Diagrams: 06/17/19 05:25 06/17/19 05:25 Labs: 06/11/19 13:58 Urine,Clean Catch Urine Culture - Final Laboratory WBC 11.2 X10^3/uL (3.6-10.0) H 06/17/19 05:25 RBC 4.25 X10^6/uL (4.7-6.0) L 06/17/19 05:25 Hgb 14.4 g/dL (13.5-18.0) 06/17/19 05:25 Hct 41.7 % (42.0-54.0) L 06/17/19 05:25 MCV 98.1 fL (80.0-100.0) 06/17/19 05:25 MCH 34.0 pg (27.0-34.0) 06/17/19 05:25 MCHC 34.6 g/dL (33.0-35.0) 06/17/19 05:25 RDW 15.8 % (11.6-16.5) 06/17/19 05:25 Plt Count 216 X10^3/uL (150.0-450.0) 06/17/19 05:25 Plt Count Comment Adequate (ADEQUATE) 06/17/19 05:25 MPV 8.6 fL (7.4-11.0) 06/17/19 05:25 Neut % (Auto) 90.2 % (42.0-75.0) H 06/17/19 05:25 Lymph % (Auto) 6.5 % (21.0-51.0) L 06/17/19 05:25 [place] % (Auto) 2.9 % (0.0-13.0) 06/17/19 05:25 Eos % (Auto) 0.3 % (0.9-2.9) L 06/17/19 05:25 Baso % (Auto) 0.1 % (0.2-1.0) L 06/17/19 05:25 Neut # (Auto) 10.1 x10^3/uL (2.2-4.8) H 06/17/19 05:25 Lymph # (Auto) 0.7 X10^3/uL (1.3-2.9) L 06/17/19 05:25 [place] # (Auto) 0.3 x10^3/uL (0.3-0.8) 06/17/19 05:25 Eos # (Auto) 0.0 x10^3/uL (0.0-0.2) 06/17/19 05:25 Baso # (Auto) 0.0 X10^3/uL (0.0-0.1) 06/17/19 05:25 Absolute Nucleated RBC 0.8 /100WBC 06/17/19 05:25 Total Counted 100 06/17/19 05:25 Neutrophils % (Manual) 79 % (39-76) H 06/17/19 05:25 Band Neutrophils % 4 % (0-10) 06/17/19 05:25 Lymphocytes % (Manual) 8 % (13-43) L 06/17/19 05:25 Monocytes % (Manual) 9 % (4-9) 06/17/19 05:25 Eosinophils % (Manual) 1 % (0-6) 06/14/19 04:10 Metamyelocytes % 3 06/12/19 05:15 Giant Platelets Present 06/12/19 05:15 Plt Morphology Comment Normal (NORMAL) 06/17/19 05:25 RBC Morphology Normal (NORMAL) 06/17/19 05:25 Sodium 138 mmol/L (136-145) 06/17/19 05:25 Corrected Sodium 140 mmol/L (136-145) 06/17/19 05:25 Potassium 3.1 mmol/L (3.5-5.1) L 06/17/19 05:25 Chloride 102 mmol/L (98-107) 06/17/19 05:25 Carbon Dioxide 28.7 mmol/L (21-32) 06/17/19 05:25 BUN 8 mg/dL (7-18) 06/17/19 05:25 Creatinine 0.94 mg/dL (0.70-1.30) 06/17/19 05:25 Est GFR (MDRD) Af Amer > 60 (>60) 06/17/19 05:25 Est GFR (MDRD) Non-Af > 60 (>60) 06/17/19 05:25 Glucose 163 mg/dL (65-99) H 06/17/19 05:25 POC Glucose (mg/dL) 164 mg/dL (65-99) H 06/12/19 05:29 Hemoglobin A1c 5.5 % 06/16/19 08:41 Calcium 8.1 mg/dL (8.5-10.1) L 06/17/19 05:25 Corrected Calcium 9.4 mg/dL (8.5-10.1) 06/17/19 05:25 Magnesium 1.5 mg/dL (1.7-2.9) L 06/17/19 05:25 Total Bilirubin 3.80 mg/dL (0.2-1.0) H 06/17/19 05:25 AST 241 Units/L (15-37) H 06/17/19 05:25 ALT 208 Units/L (12-78) H 06/17/19 05:25 Alkaline Phosphatase 198 Units/L (46-116) H 06/17/19 05:25 Total Protein 5.9 g/dL (6.4-8.2) L 06/17/19 05:25 Albumin 2.4 g/dL (3.4-5.0) L 06/17/19 05:25 Globulin 3.5 g/dL (2.5-4.5) 06/17/19 05:25 Albumin/Globulin Ratio 0.7 Ratio (1.1-2.1) L 06/17/19 05:25 Triglycerides 115 mg/dL (0-150) 06/11/19 14:59 Cholesterol 181 mg/dL (0-200) 06/11/19 14:59 LDL Cholesterol, Calc 109 mg/dL (0-100) H 06/11/19 14:59 HDL Cholesterol 49 mg/dL (40-60) 06/11/19 14:59 Cholesterol/HDL Ratio 3.7 (0.0-5.0) 06/11/19 14:59 Amylase 32 Units/L (25-115) 06/15/19 05:05 Lipase 169 Units/L (73-393) 06/15/19 05:05 Carcinoembryonic Ag 2.5 ng/mL (0.0-3.0) 06/11/19 05:20 Specimen Type Clean catch urine 06/11/19 13:58 Urine Color [place] (YELLOW) 06/11/19 13:58 Urine Appearance Clear (CLEAR) 06/11/19 13:58 Urine pH 6.5 (5.0 - 8.0) 06/11/19 13:58 Ur Specific [place] 1.010 (1.000-1.030) 06/11/19 13:58 Urine Protein 3+ (NEGATIVE) 06/11/19 13:58 Urine Glucose (UA) 2+ (NEGATIVE) 06/11/19 13:58 Urine Ketones 2+ (NEGATIVE) 06/11/19 13:58 Urine Occult Blood 2+ (NEGATIVE) 06/11/19 13:58 Urine Nitrite Positive (NEGATIVE) 06/11/19 13:58 Urine Bilirubin 1+ (NEGATIVE) 06/11/19 13:58 Urine Urobilinogen 2+ (NORMAL) 06/11/19 13:58 Ur Leukocyte Esterase 1+ (NEGATIVE) 06/11/19 13:58 Urine RBC 3-5 /HPF (0-3) A 06/11/19 13:58 Urine WBC 0-2 /HPF (0-5) 06/11/19 13:58 Ur Squamous Epith Cells Rare /HPF (NEGATIVE) 06/11/19 13:58 Urine Bacteria Trace /HPF (NEGATIVE) 06/11/19 13:58 Urine Mucus Few /HPF (NEGATIVE) 06/11/19 13:58 Ur Culture Indicated? Yes/culture set up 06/11/19 13:58 Ethyl Alcohol mg/dL < 3 mg/dL (0-19.9) 06/11/19 05:20 Ethyl Alcohol mg/dL Cancelled 06/11/19 05:20 Plan (1) Acute dyspnea: Status: Acute (2) Acute alcoholic pancreatitis: Status: Acute Qualifiers: Acute pancreatitis complication: no infection or necrosis Qualified Code(s): K85.20 - Alcohol induced acute pancreatitis without necrosis or infection (3) Thrombocytopenia: Status: Acute (4) Cyst and pseudocyst of pancreas: Status: Acute (5) Accelerated hypertension: Status: Acute (6) ETOH abuse: Status: Acute (7) Sinus tachycardia: Status: Acute (8) UTI (urinary tract infection): Status: Acute Qualifiers: Hematuria presence: without hematuria Urinary tract infection type: acute cystitis Qualified Code(s): N30.00 - Acute cystitis without hematuria
[2019-06-17] MEDS: K-DUR TAB 20 MEQ PO PRN (11:45)
[2019-06-17] MEDS: ZOSYN VIAL 3.375 GRAMS 3.375 G in NS 100 ML IV + SPIKE MINIBAG* 100 ML IV SCH ×3 (11:56→22:50)
[2019-06-17] MEDS: MAGNESIUM SULFATE 1 GRAM/100 mL PREMIX 1 GM/100 ML BAG IV PRN ×2 (15:02→16:49)
[2019-06-17] MEDS ORDERED: NS 250 ML IV 250 ML IV ONE (15:03)
[2019-06-17] MEDS: HumuLIN R SC PRN ×2 (16:55→23:31)
[2019-06-18] MEDS: ZOSYN VIAL 3.375 GRAMS 3.375 G in NS 100 ML IV + SPIKE MINIBAG* 100 ML IV SCH (05:58)
[2019-06-18] MEDS: ULTRAM PO PRN (06:17)
[2019-06-18] MEDS: HumuLIN R SC PRN (06:18)
[2019-06-18 06:44] LABS: BASOPHILS # (AUTO) 0.1 X10^3/uL (0.0-0.1); BASOPHILS % (AUTO) 0.4 % (0.2-1.0); EOSINOPHILS # (AUTO) 0.1 x10^3/uL (0.0-0.2); EOSINOPHILS % (AUTO) 0.5 % (0.9-2.9); HEMATOCRIT 43.5 % (42.0-54.0); HEMOGLOBIN 14.9 g/dL (13.5-18.0); LYMPHOCYTES # (AUTO) 1.1 X10^3/uL (1.3-2.9); LYMPHOCYTES % (AUTO) 8.1 % (21.0-51.0); MEAN CORPUSCULAR HEMOGLOBIN 33.9 pg (27.0-34.0); MEAN CORPUSCULAR HGB CONC 34.2 g/dL (33.0-35.0); MEAN CORPUSCULAR VOLUME 99.2 fL (80.0-100.0); MONOCYTES # (AUTO) 0.7 x10^3/uL (0.3-0.8); MONOCYTES % (AUTO) 4.9 % (0.0-13.0); NEUTROPHILS % (AUTO) 86.1 % (42.0-75.0); PLATELET COUNT 243 X10^3/uL (150.0-450.0); RED BLOOD COUNT 4.39 X10^6/uL (4.7-6.0)
[2019-06-18 06:58] LABS: ALANINE AMINOTRANSFERASE 229 Units/L (12-78); ALBUMIN 2.5 g/dL (3.4-5.0); ALKALINE PHOSPHATASE 243 Units/L (46-116); ASPARTATE AMINO TRANSFERASE 205 Units/L (15-37); BLOOD UREA NITROGEN 9 mg/dL (7-18); CALCIUM 8.3 mg/dL (8.5-10.1); CARBON DIOXIDE 28.2 mmol/L (21-32); CHLORIDE 102 mmol/L (98-107); COR CA(FOR HYPOALB) 9.5 mg/dL (8.5-10.1); COR NA(FOR HYPERGLY) 140 mmol/L (136-145); CREATININE 0.99 mg/dL (0.70-1.30); MAGNESIUM 1.9 mg/dL (1.7-2.9); SODIUM 139 mmol/L (136-145); TOTAL PROTEIN 6.3 g/dL (6.4-8.2); eGFR NON BLACK RACES > 60 (>60)
[2019-06-18] MEDS: TAB-A-VITE PO SCH (09:00)
[2019-06-18] MEDS: VENTOLIN or PROAIR HFA IN SCH ×2 (09:00→13:00)
[2019-06-18] MEDS: K-DUR TAB 20 MEQ PO SCH (09:00)
[2019-06-18] MEDS: LOVENOX INJ 40 MG SYR SC SCH (09:00)
[2019-06-18] MEDS: VIBRAMYCIN PO SCH (09:00)
[2019-06-18] MEDS: VITAMIN B-1 PO SCH (09:00)
[2019-06-18] MEDS: PROTONIX INJ 40 MG VIAL IVP SCH (09:00)
[2019-06-18] MEDS: LOPRESSOR TAB 25 MG PO SCH (09:00)
[2019-06-18] MEDS: LIBRIUM PO SCH (11:40)
--- NOTE | 2019-06-18 13:02 | W.DIS.FURT ---
Summary of Discharge Discharge Summary of Date Date of Exam: 06/18/19 Admission Date Date of Admission: 06/11/19 Admission Diagnosis Hospital Course: Mr. Meadows is a 48y/o male with a PMH of HTN and chronic ETOH use presented with diffuse abdominal pain with radiation to the back, associated with nausea and vomiting. Patient states his symptoms started yesterday morning after he had been binge drinking for the past 3-4 days. He states he knew he was having another pancreatitis episode so decided to come to the ED. His last episode was a year ago in [place]. He has been staying in [place] now due to pandemic so states he has been at home with nothing to do. He denies hx of seizures 2/2 to ETOH or intubation. ED work-up: CTAP: pancreatitis with pseudocyst, Dr Nguyen with surgery was consulted. Abd U/S: no gall bladder inflammation or cholelithiasis. Lipase significantly elevated on admission along with LFTs and Total billirubin. Patient also had accelerated HTN and tachycardia. He was started on clonidine patch and hydralazine. He was also started on Librium to help with ETOH withdrawal symptoms. He received hydration with fluids and banana bag for thiamine and multivitamins. He also had a UTI and was started on IV abx.Patient's was kept NPO with pain control initially and diet was advanced as tolerated. Due to his persistent elevation in Total billirubin and LFTs, repeat CTAP was done which showed no acute change and stable pseudocyst. Patient's abdominal pain was improving and he was tolerating soft diet. He started to have SOB and wheezing while inpatient. CXR showed some atelectasis, he was started on incentive spirometer and steroids. He was checked for COVID-19 which came back negative. He was started on doxcycline for bronchitis. He was weaned off oxygen and seen by PT/OT. He was stable for discharge. He will follow up with Dr Nguyen and PCP as scheduled. Vital Signs: Vital Signs (72 hours) 06/15/19 13:15 06/15/19 13:25 06/15/19 13:30 Temperature Pulse Rate 76 77 77 Respiratory Rate 20 29 H Blood Pressure O2 Sat by Pulse Oximetry 95 94 L 97 06/15/19 13:45 06/15/19 14:00 06/15/19 14:15 Temperature Pulse Rate 91 H 78 66 Respiratory Rate 20 27 H 20 Blood Pressure O2 Sat by Pulse Oximetry 98 94 L 94 L 06/15/19 14:30 06/15/19 14:45 06/15/19 15:00 Temperature Pulse Rate 75 69 65 Respiratory Rate 10 L 20 0 L Blood Pressure O2 Sat by Pulse Oximetry 96 95 95 06/15/19 15:15 06/15/19 15:30 06/15/19 15:45 Temperature Pulse Rate 90 65 64 Respiratory Rate 38 H 17 22 Blood Pressure O2 Sat by Pulse Oximetry 97 98 99 06/15/19 16:00 06/15/19 16:15 06/15/19 16:30 Temperature 97.8 F Pulse Rate 59 L 65 65 Respiratory Rate 9 L 22 25 H Blood Pressure O2 Sat by Pulse Oximetry 98 96 94 L 06/15/19 16:45 06/15/19 17:00 06/15/19 17:02 Temperature Pulse Rate 76 63 63 Respiratory Rate 42 H 24 25 H Blood Pressure 113/73 O2 Sat by Pulse Oximetry 96 96 96 06/15/19 17:40 06/15/19 20:00 06/15/19 20:25 Temperature 99.1 F Pulse Rate 62 78 74 Respiratory Rate 23 Blood Pressure 103/65 O2 Sat by Pulse Oximetry 95 96 96 06/15/19 21:56 06/15/19 22:56 06/16/19 00:00 Temperature 98.9 F Pulse Rate Respiratory Rate 20 18 23 Blood Pressure 124/80 O2 Sat by Pulse Oximetry 98 06/16/19 04:00 06/16/19 08:00 06/16/19 08:50 Temperature 98.7 F 97.8 F Pulse Rate 92 H 86 Respiratory Rate 12 25 H Blood Pressure 147/87 152/89 O2 Sat by Pulse Oximetry 96 92 L 96 06/16/19 09:10 06/16/19 10:10 06/16/19 12:00 Temperature 98.0 F Pulse Rate 84 Respiratory Rate 24 24 26 H Blood Pressure 127/76 O2 Sat by Pulse Oximetry 91 L 06/16/19 12:05 06/16/19 14:00 06/16/19 16:00 Temperature 97.6 F Pulse Rate 90 80 83 Respiratory Rate 20 24 Blood Pressure 125/76 122/81 O2 Sat by Pulse Oximetry 98 91 L 95 06/16/19 16:50 06/16/19 20:00 06/16/19 20:45 Temperature 99.0 F Pulse Rate 82 81 90 Respiratory Rate 20 Blood Pressure 131/73 O2 Sat by Pulse Oximetry 95 98 96 06/17/19 00:00 06/17/19 03:00 06/17/19 04:00 Temperature 99.4 F 100.0 F H Pulse Rate 84 90 Respiratory Rate 20 20 24 Blood Pressure 129/75 111/75 O2 Sat by Pulse Oximetry 96 94 L 06/17/19 08:00 06/17/19 09:05 06/17/19 12:00 Temperature 98.1 F 99.2 F Pulse Rate 90 85 85 Respiratory Rate 18 18 Blood Pressure 146/88 138/68 O2 Sat by Pulse Oximetry 95 96 96 06/17/19 13:30 06/17/19 16:00 06/17/19 17:45 Temperature 98.4 F Pulse Rate 85 92 H 80 Respiratory Rate 20 Blood Pressure 128/64 O2 Sat by Pulse Oximetry 95 95 95 06/17/19 20:00 06/17/19 20:17 06/18/19 00:00 Temperature 97.7 F 97.8 F Pulse Rate 85 89 89 Respiratory Rate 18 22 Blood Pressure 120/73 121/81 O2 Sat by Pulse Oximetry 99 97 97 06/18/19 04:00 06/18/19 06:17 06/18/19 07:17 Temperature 99.0 F Pulse Rate 84 Respiratory Rate 20 20 18 Blood Pressure 127/91 O2 Sat by Pulse Oximetry 96 06/18/19 09:50 Temperature Pulse Rate 86 Respiratory Rate Blood Pressure O2 Sat by Pulse Oximetry 95 Labs: Laboratory Last Values WBC 14.0 X10^3/uL (3.6-10.0) H 06/18/19 06:09 RBC 4.39 X10^6/uL (4.7-6.0) L 06/18/19 06:09 Hgb 14.9 g/dL (13.5-18.0) 06/18/19 06:09 Hct 43.5 % (42.0-54.0) 06/18/19 06:09 MCV 99.2 fL (80.0-100.0) 06/18/19 06:09 MCH 33.9 pg (27.0-34.0) 06/18/19 06:09 MCHC 34.2 g/dL (33.0-35.0) 06/18/19 06:09 RDW 16.0 % (11.6-16.5) 06/18/19 06:09 Plt Count 243 X10^3/uL (150.0-450.0) 06/18/19 06:09 Plt Count Comment Adequate (ADEQUATE) 06/17/19 05:25 MPV 9.0 fL (7.4-11.0) 06/18/19 06:09 Neut % (Auto) 86.1 % (42.0-75.0) H 06/18/19 06:09 Lymph % (Auto) 8.1 % (21.0-51.0) L 06/18/19 06:09 [place] % (Auto) 4.9 % (0.0-13.0) 06/18/19 06:09 Eos % (Auto) 0.5 % (0.9-2.9) L 06/18/19 06:09 Baso % (Auto) 0.4 % (0.2-1.0) 06/18/19 06:09 Neut # (Auto) 12.0 x10^3/uL (2.2-4.8) H 06/18/19 06:09 Lymph # (Auto) 1.1 X10^3/uL (1.3-2.9) L 06/18/19 06:09 [place] # (Auto) 0.7 x10^3/uL (0.3-0.8) 06/18/19 06:09 Eos # (Auto) 0.1 x10^3/uL (0.0-0.2) 06/18/19 06:09 Baso # (Auto) 0.1 X10^3/uL (0.0-0.1) 06/18/19 06:09 Absolute Nucleated RBC 0.4 /100WBC 06/18/19 06:09 Total Counted 100 06/17/19 05:25 Neutrophils % (Manual) 79 % (39-76) H 06/17/19 05:25 Band Neutrophils % 4 % (0-10) 06/17/19 05:25 Lymphocytes % (Manual) 8 % (13-43) L 06/17/19 05:25 Monocytes % (Manual) 9 % (4-9) 06/17/19 05:25 Eosinophils % (Manual) 1 % (0-6) 06/14/19 04:10 Metamyelocytes % 3 06/12/19 05:15 Giant Platelets Present 06/12/19 05:15 Plt Morphology Comment Normal (NORMAL) 06/17/19 05:25 RBC Morphology Normal (NORMAL) 06/17/19 05:25 Sodium 139 mmol/L (136-145) 06/18/19 06:09 Corrected Sodium 140 mmol/L (136-145) 06/18/19 06:09 Potassium 3.2 mmol/L (3.5-5.1) L 06/18/19 06:09 Chloride 102 mmol/L (98-107) 06/18/19 06:09 Carbon Dioxide 28.2 mmol/L (21-32) 06/18/19 06:09 BUN 9 mg/dL (7-18) 06/18/19 06:09 Creatinine 0.99 mg/dL (0.70-1.30) 06/18/19 06:09 Est GFR (MDRD) Af Amer > 60 (>60) 06/18/19 06:09 Est GFR (MDRD) Non-Af > 60 (>60) 06/18/19 06:09 Glucose 132 mg/dL (65-99) H 06/18/19 06:09 POC Glucose (mg/dL) 126 mg/dL (65-99) H 06/18/19 11:40 Hemoglobin A1c 5.5 % 06/16/19 08:41 Calcium 8.3 mg/dL (8.5-10.1) L 06/18/19 06:09 Corrected Calcium 9.5 mg/dL (8.5-10.1) 06/18/19 06:09 Magnesium 1.9 mg/dL (1.7-2.9) 06/18/19 06:09 Total Bilirubin 3.10 mg/dL (0.2-1.0) H 06/18/19 06:09 AST 205 Units/L (15-37) H 06/18/19 06:09 ALT 229 Units/L (12-78) H 06/18/19 06:09 Alkaline Phosphatase 243 Units/L (46-116) H 06/18/19 06:09 Total Protein 6.3 g/dL (6.4-8.2) L 06/18/19 06:09 Albumin 2.5 g/dL (3.4-5.0) L 06/18/19 06:09 Globulin 3.8 g/dL (2.5-4.5) 06/18/19 06:09 Albumin/Globulin Ratio 0.7 Ratio (1.1-2.1) L 06/18/19 06:09 Triglycerides 115 mg/dL (0-150) 06/11/19 14:59 Cholesterol 181 mg/dL (0-200) 06/11/19 14:59 LDL Cholesterol, Calc 109 mg/dL (0-100) H 06/11/19 14:59 HDL Cholesterol 49 mg/dL (40-60) 06/11/19 14:59 Cholesterol/HDL Ratio 3.7 (0.0-5.0) 06/11/19 14:59 Amylase 32 Units/L (25-115) 06/15/19 05:05 Lipase 169 Units/L (73-393) 06/15/19 05:05 Carcinoembryonic Ag 2.5 ng/mL (0.0-3.0) 06/11/19 05:20 Specimen Type Clean catch urine 06/11/19 13:58 Urine Color [place] (YELLOW) 06/11/19 13:58 Urine Appearance Clear (CLEAR) 06/11/19 13:58 Urine pH 6.5 (5.0 - 8.0) 06/11/19 13:58 Ur Specific [place] 1.010 (1.000-1.030) 06/11/19 13:58 Urine Protein 3+ (NEGATIVE) 06/11/19 13:58 Urine Glucose (UA) 2+ (NEGATIVE) 06/11/19 13:58 Urine Ketones 2+ (NEGATIVE) 06/11/19 13:58 Urine Occult Blood 2+ (NEGATIVE) 06/11/19 13:58 Urine Nitrite Positive (NEGATIVE) 06/11/19 13:58 Urine Bilirubin 1+ (NEGATIVE) 06/11/19 13:58 Urine Urobilinogen 2+ (NORMAL) 06/11/19 13:58 Ur Leukocyte Esterase 1+ (NEGATIVE) 06/11/19 13:58 Urine RBC 3-5 /HPF (0-3) A 06/11/19 13:58 Urine WBC 0-2 /HPF (0-5) 06/11/19 13:58 Ur Squamous Epith Cells Rare /HPF (NEGATIVE) 06/11/19 13:58 Urine Bacteria Trace /HPF (NEGATIVE) 06/11/19 13:58 Urine Mucus Few /HPF (NEGATIVE) 06/11/19 13:58 Ur Culture Indicated? Yes/culture set up 06/11/19 13:58 Ethyl Alcohol mg/dL < 3 mg/dL (0-19.9) 06/11/19 05:20 Ethyl Alcohol mg/dL Cancelled 06/11/19 05:20 Miscellaneous Test Covid 19 06/14/19 09:25 Reason For Visit: ACUTE PANCREATITIS Discharge Date Discharge Date: 06/18/19 Discharge Diagnosis All Active Problems (Updated 06/14/19 @ 09:27 by Kourtney Maravilla) Acute dyspnea (Acute) UTI (urinary tract infection) (Acute) Sinus tachycardia (Acute) ETOH abuse (Acute) Accelerated hypertension (Acute) Acute alcoholic pancreatitis (Acute) Thrombocytopenia (Acute) Erythrocytosis (Acute) Cyst and pseudocyst of pancreas (Acute) Abdominal pain (Acute) Plan of Treatment: Continue with present treatment and follow up plan. Pt is to keep follow up appointment as instructed and take medications as ordered. Discharge Medications Discharge Medications: No Known Drug Allergies Allergy (Verified 06/11/19 05:10) New Prescriptions albuterol sulfate [Ventolin HFA] 2 puff INHALATION QIDRESP 30 Days #8.5 g 06/18/19 [Rx] metoprolol tartrate 12.5 mg PO BID 30 Days #30 tab 06/18/19 [Rx] multivitamin with folic acid [Thera] 1 tab PO DAILY 30 Days #30 tab 06/18/19 [Rx] pantoprazole 40 mg PO QAM 28 Days #28 tab 06/18/19 [Rx] potassium chloride [Klor-Con M20] 20 meq PO DAILY 7 Days #7 tab 06/18/19 [Rx] tramadol 50 mg PO Q12H PRN 3 Days #6 tab MDD 100 mg 06/18/19 [Rx] Follow up and Referral Follow Up: 10 Days (PCP) 1 Week (Surgery ) Discharge Disposition Assessment: Stable no acute distress noted at time of discharge. Discharge Disposition: Home Discharge Condition: Stable
[2019-06-18 13:05] VITALS: BP 128/80
[2019-06-20 07:16] LABS: HEPATITIS B SURFACE ANTIGEN Negative (Negative)
== END 2019-06-18 14:50 | disposition home or self-care (01) | DRG 439 ==
LOC: ER 05:03 → OBS 09:42 → MED/SURG 06-12 16:19 → ICU 06-14 15:34 → MED/SURG 06-16 15:55
PROVIDERS: ADMIT Surgery; ATTEND Surgery
DX: Z11.59 Encounter for screening for other viral diseases; K85.20 Alcohol induced acute pancreatitis without necrosis or infection; K86.2 Cyst of pancreas; B27.00 Gammaherpesviral mononucleosis without complication; R10.84 Generalized abdominal pain; D69.6 Thrombocytopenia, unspecified; N30.00 Acute cystitis without hematuria; K86.3 Pseudocyst of pancreas; R00.0 Tachycardia, unspecified; F10.10 Alcohol abuse, uncomplicated; J90 Pleural effusion, not elsewhere classified; R74.0 Nonspecific elevation of levels of transaminase and lactic acid dehydrogenase [LDH]; I10 Essential (primary) hypertension; R94.31 Abnormal electrocardiogram [ECG] [EKG]; R06.00 Dyspnea, unspecified